=== PATIENT | female | born 1945 | race Caucasian/White ===

== ENCOUNTER → 2017-03-22 | Outpatient (CLI) | payer MEDICARE, OTHER ==
[~2017-03-22] MED LIST: ACTOS45 MG PO; ASPIRIN81 M1 PO; COUMADIN5 MG PO; COZAAR100 MG PO; COZAAR50 MG PO; DIOVAN160 MG PO; GLYBURIDE/METFO1 TA1 PO; GLYBURIDE/METFO1 TA2 PO; GLYBURIDE/METFO1 TA9 PO; ISORDIL TEMBIDS40 M1 PO; LOSARTAN POTAS100 M1 PO; LOVASTATIN20 MG PO; METFORMIN500 MG PO; PLAVIX75 MG PO; SIMVASTATIN20 MG PO; TOPROL XL100 MG PO; ULTRAM50 MG PO; VICODIN 5/500 505 MG PO; VICODIN 500 MG-1 TAB PO
[2017-03-22 09:37] LABS: BASO # 0.1 10*3/uL (0.0-0.1); BASO % 0.9 % (0.0-1.0); EOS # 0.2 10*3/uL (0.0-0.4); EOS % 3.4 % (1.0-4.0); HEMATOCRIT 38.6 % (37.0-47.0); HEMOGLOBIN 12.5 g/dl (12.0-16.0); LYMPH # 2.5 10*3/uL (1.3-4.4); LYMPH % 36.5 % (27.0-41.0); MEAN CELL VOLUME 86.4 fl (81.0-99.0); MEAN CORPUSCULAR HGB CONC 32.4 g/dl (33.0-37.0); MEAN PLATELET VOLUME 10.1 fl (9.6-12.3); MONO # 0.5 10*3/uL (0.1-1.0); NEUT # 3.6 10*3/uL (2.3-7.9); NEUT % 52.1 % (47.0-73.0); PLATELET COUNT AUTOMATED 164 10*3/uL (130-400); RED BLOOD COUNT 4.47 10*6/uL (4.10-5.10); WHITE BLOOD COUNT 6.8 10*3/uL (4.8-10.8)
[2017-03-22 09:39] LABS: ALBUMIN 3.6 gm/dl (3.1-4.5); ALKALINE PHOSPHATASE 135 U/L (45-117); BUN 31 mg/dl (7-24); CHLORIDE 102 mmol/L (98-107); CHOLESTEROL 119 mg/dL (<200); CREATININE 1.04 mg/dL (0.55-1.02); FREE T4 0.79 ng/dl (0.76-1.46); HDL CHOLESTEROL 38 mg/dl (40-60); LDL CHOLESTEROL 28 mg/dL (9-159); POTASSIUM 4.6 mmol/L (3.5-5.1); SGOT/AST 21 IU/L (3-35); SGPT/ALT 28 U/L (12-78); SODIUM 138 mmol/L (136-145); TOTAL PROTEIN 7.7 gm/dL (6.4-8.2); TRIGLYCERIDES 263 mg/dl (<150); VLDL CHOLESTEROL 53 mg/dL (6-40)
[2017-03-22 11:10] LABS: VITAMIN D, 25-HYDROXY 17.5 ng/mL (30-100)
== END | disposition home or self-care (01) ==
LOC: LAB 08:42
PROVIDERS: Internal Medicine
DX: Z12.31 Encounter for screening mammogram for malignant neoplasm of breast (principal); Z13.1 Encounter for screening for diabetes mellitus; Z13.220 Encounter for screening for lipoid disorders; E78.2 Mixed hyperlipidemia; E11.9 Type 2 diabetes mellitus without complications; E55.9 Vitamin D deficiency, unspecified; R53.81 Other malaise

== ENCOUNTER → 2017-03-30 | Outpatient (CLI) | payer MEDICARE, OTHER | END | disposition home or self-care (01) | LOC: RAD 03-24 13:00 | DX: Z13.820 Encounter for screening for osteoporosis (principal); I65.23 Occlusion and stenosis of bilateral carotid arteries; N95.9 Unspecified menopausal and perimenopausal disorder; R06.02 Shortness of breath; R42 Dizziness and giddiness; Z90.710 Acquired absence of both cervix and uterus ==

== ENCOUNTER 2018-11-21 22:47 | Inpatient (IN) | payer MEDICARE, OTHER ==
[~2018-11-21] VITALS: Ht 160 cm; Wt 125.9 kg
[2018-11-21] MEDS ORDERED: SIMVASTATIN20 MG PO (22:54)
[2018-11-21] MEDS ORDERED: ZESTRIL10 MG PO (22:54)
[2018-11-21] MEDS ORDERED: LANTUS SOL100 UNIT/1 SQ (22:55)
[2018-11-21] MEDS ORDERED: HYDR25T PO (22:55)
[2018-11-21] MEDS ORDERED: JANTOVEN5 MG PO (22:55)
[2018-11-21 22:56] VITALS: BP 184/77
[2018-11-21] MEDS ORDERED: FUROSEMIDE40 MG PO (22:56)
[2018-11-21 23:22] LABS: ACT PARTIAL THROMBO TIME 35.6 SECONDS (20.0-32.1); INTERNATIONAL NORM RATIO 2.9 (2.0-3.5)
[2018-11-21 23:23] LABS: ALBUMIN 3.8 gm/dl (3.1-4.5); CREATININE 1.28 mg/dL (0.55-1.02); POTASSIUM 3.9 mmol/L (3.5-5.1); TOTAL PROTEIN 7.9 gm/dL (6.4-8.2)
[2018-11-21 23:25] LABS: BASO # 0.1 10*3/uL (0.0-0.1); BASO % 0.8 % (0.0-1.0); EOS # 0.2 10*3/uL (0.0-0.4); EOS % 2.5 % (1.0-4.0); HEMOGLOBIN 12.5 g/dl (12.0-16.0); LYMPH # 3.4 10*3/uL (1.3-4.4); LYMPH % 44.6 % (27.0-41.0); MEAN CELL VOLUME 86.5 fl (81.0-99.0); MEAN CORPUSCULAR HGB 27.7 pg (27.0-31.0); MEAN CORPUSCULAR HGB CONC 32.1 g/dl (33.0-37.0); MEAN PLATELET VOLUME 10.1 fl (9.6-12.3); MONO # 0.5 10*3/uL (0.1-1.0); MONO % 7.2 % (3.0-9.0); NEUT # 3.3 10*3/uL (2.3-7.9); NEUT % 44.2 % (47.0-73.0); PLATELET COUNT AUTOMATED 199 10*3/uL (130-400); RED BLOOD COUNT 4.51 10*6/uL (4.10-5.10); RED CELL DISTRI WIDTH 13.5 % (0-14.5); WHITE BLOOD COUNT 7.5 10*3/uL (4.8-10.8)
--- NOTE | 2018-11-21 23:27 | NUR ---
CRITICAL TROPONIN 0.[address] SHEPHERD AT THIS TIME
[2018-11-21 23:43] LABS: TROPONIN I 0.404 ng/ml (<0.045)
[2018-11-22 00:09] VITALS: BP 135/52
[2018-11-22 00:50] VITALS: BP 138/64
[2018-11-22 01:00] VITALS: BP 158/60
--- NOTE | 2018-11-22 01:24 | NUR ---
ATTEMPTED TO REACH REGARDING ADMISSION ORDERS. WILL TRY AGAIN
--- NOTE | 2018-11-22 02:23 | NUR ---
SPOKE WITH DR. WASHBURN ANSWERING SERVICE REGARDING CONSULT. WAITING FOR A RETURN CALL
--- NOTE | 2018-11-22 02:23 | NUR ---
SPOKE WITH DR RESENDIZ REGARDING NEW ADMIT AND ELEVATED TROPONINS. SAID TO CONTINUE ALL OF HER HOME MEDS, PUT HER ON A REGULAR DIET AND CONSULT DR. KHOURY FOR THE ELEVATED TROPONINS AND CHEST PAIN.
--- NOTE | 2018-11-22 02:33 | NUR ---
SPOKE WITH DR. LINDSEY REGARDING NEW CONSULT. STATED TO START HER ON THE LOW DOSE CARDIAC PROTOCOL FOR HEPARIN.
[2018-11-22] MEDS ORDERED: IMDUR SA60 M1 PO (02:44)
[2018-11-22] MEDS ORDERED: GLYBURIDE5 MG PO (02:46)
[2018-11-22] MEDS ORDERED: GLUCOPHAGE500 M1 PO (02:46)
--- NOTE | 2018-11-22 04:13 | NUR ---
Patient sleeping. Respirations relaxed and easy. Siderails up . [place] on. CALL LIGHT WITHIN REACH HISSOM,SHAYY
--- NOTE | 2018-11-22 05:26 | NUR ---
SPOKE WITH DR. LINDSEY REGARDING PATIENTS NEW TROPONIN OF 4.41. STATED TO MAKE PATIENT NPO OF NOW.
--- NOTE | 2018-11-22 05:26 | NUR ---
ATTEMPTED TO CONTACT DR. RESENDIZ AT THIS TIME TO NOTIFY OF PATIENTS TROPONIN AT THIS TIME. NO ANSWER WILL RETRY
--- NOTE | 2018-11-22 05:42 | NUR ---
DR. RESENDIZ NOTIFIED OF TROPONIN AT THIS TIME. NOTIFIED HIM THAT PATIENT IS CURRENTLY NPO AND ON HEPARIN PER DR. ADORNO.
--- NOTE | 2018-11-22 06:06 | NUR ---
IV started right hand with #22 angiocath after 1 attempt. The IV site was prepped with Chloraprep. Heparin lock attached. Sterile dressing applied. Patient tolerated precedure well. Procedure performed according to [facility] policy & procedure. NAIMA MURDOCK
--- NOTE | 2018-11-22 06:13 | NUR ---
SPOKE WITH DR. CAM REGARDING PATIENTS STATUS. STATED SHE WAS GOING TO TALK WITH ABOUT POSSIBLY TRANSFERRING HER TO A [facility].
--- NOTE | 2018-11-22 06:32 | NUR ---
DR. CAM IN TO SEE PATIENT.
--- NOTE | 2018-11-22 06:48 | NUR ---
SPOKE WITH DR. CAM. SHE STATED THEY WILL PROBABLY CATH THE PATIENT TOMORROW
--- NOTE | 2018-11-22 06:53 | NUR ---
SPOKE WITH DR. CAM. STATED TO PUT ASPIRIN AND COUMADIN ON HOLD. ALSO, THAT SHE WAS GOING TO PUT IN NITRO PASTE AND VITAMIN K.
--- NOTE | 2018-11-22 07:40 | NUR ---
DR PRAJAPATI IN TO SEE PT. I EXPLAINED THAT PT WANTS TO BE TRANSFERRED TO [facility] TO SEE HER RADIOLOGY TEACHER. PER DR PRAJAPATI PT WILL GO VIA GROUND TO [facility] UNDER THE CARE OF DR MARKS. WAITING ON ROOM. HEPARIN INFUSION DISCONTINUED, NITRO PASTE AND PO VITAMIN K ADMINISTERED. PT AWARE THAT TRANSFER IS IN PROGRESS.
[2018-11-22 08:00] VITALS: BP 139/50
[2018-11-22 09:23] LABS: INTERNATIONAL NORM RATIO 3.1 (2.0-3.5)
[2018-11-22 12:00] VITALS: BP 158/52
--- NOTE | 2018-11-22 13:56 | NUR ---
PT BEING TRANSFERRED TO [facility]. PT LEFT FLOOR VIA STRETCHER IN THE CARE OF [facility]. PACKET SENT WITH PATIENT
--- NOTE | 2018-11-22 13:56 | NUR ---
REPORT CALLED TO NURSE ANDERSON AT [facility].
--- NOTE | 2018-11-22 14:03 | NUR ---
PER DR CASON I CALLED [facility] AND GAVE THEM DR SANTIAGO PHONE NUMBER AND EXPLAINED THAT HE SAID HE WILL SEE PT WHILE SHE IS THERE
[2019-01-18] MEDS ORDERED: LIPITOR80 MG PO (08:24)
[2019-01-18] MEDS ORDERED: TRAD5TAB1 PO (08:24)
[2019-01-18] MEDS ORDERED: COUMADIN5 M2 PO (08:26)
[2019-01-18] MEDS ORDERED: DOXYCYCLINE100 M3 PO (08:28)
[2019-01-18] MEDS ORDERED: COUMADIN2.5 M1 PO (08:28)
== END 2018-11-22 13:56 | disposition short-term general hospital (02) | DRG 281 ==
LOC: ED 22:47 → 4E 11-22 00:21 → EDHOLD 11-22 00:21 → 4E 11-22 00:36
PROVIDERS: Emergency Medicine; Internal Medicine; ADMIT Internal Medicine
DX: I21.4 Non-ST elevation (NSTEMI) myocardial infarction (principal); Z68.42 Body mass index [BMI] 45.0-49.9, adult; Z96.653 Presence of artificial knee joint, bilateral; E66.01 Morbid (severe) obesity due to excess calories; E11.22 Type 2 diabetes mellitus with diabetic chronic kidney disease; N18.9 Chronic kidney disease, unspecified; I25.709 Atherosclerosis of coronary artery bypass graft(s), unspecified, with unspecified angina pectoris; I12.9 Hypertensive chronic kidney disease with stage 1 through stage 4 chronic kidney disease, or unspecified chronic kidney disease; Z79.4 Long term (current) use of insulin; Z79.84 Long term (current) use of oral hypoglycemic drugs; Z79.82 Long term (current) use of aspirin; Z79.01 Long term (current) use of anticoagulants; Z90.710 Acquired absence of both cervix and uterus; Z82.49 Family history of ischemic heart disease and other diseases of the circulatory system; Z83.3 Family history of diabetes mellitus; Z86.718 Personal history of other venous thrombosis and embolism; Z86.711 Personal history of pulmonary embolism; Z90.49 Acquired absence of other specified parts of digestive tract

== ENCOUNTER → 2019-01-21 | Day surgery (SDC) | payer MEDICARE, OTHER ==
[~2019-01-21] VITALS: Ht 160 cm; Wt 123.4 kg
[~2019-01-21] MED LIST changes: +COUMADIN2.5 M1 PO; +COUMADIN5 M2 PO; +DOXYCYCLINE100 M3 PO; +FUROSEMIDE40 MG PO; +GLUCOPHAGE500 M1 PO; +GLYBURIDE5 MG PO; +HYDR25T PO; +IMDUR SA60 M1 PO; +JANTOVEN5 MG PO; +LANTUS SOL100 UNIT/1 SQ; +LIPITOR80 MG PO; +TRAD5TAB1 PO; +ZESTRIL10 MG PO
[2019-01-21 07:16] LABS: INTERNATIONAL NORM RATIO 4.1 (2.0-3.5)
[2019-01-21 07:42] VITALS: BP 129/64
[2019-01-21 08:49] VITALS: BP 129/68
[2019-01-21 09:04] VITALS: BP 128/68
[2019-01-21 09:19] VITALS: BP 130/71
== END | disposition home or self-care (01) ==
LOC: SDC 01-18 09:30
PROVIDERS: Anesthesiology
DX: L98.492 Non-pressure chronic ulcer of skin of other sites with fat layer exposed (principal); L97.212 Non-pressure chronic ulcer of right calf with fat layer exposed; E11.59 Type 2 diabetes mellitus with other circulatory complications; I25.10 Atherosclerotic heart disease of native coronary artery without angina pectoris; I10 Essential (primary) hypertension; E78.5 Hyperlipidemia, unspecified; I25.2 Old myocardial infarction; Z95.5 Presence of coronary angioplasty implant and graft; Z98.890 Other specified postprocedural states; Z87.74 Personal history of (corrected) congenital malformations of heart and circulatory system; Z79.899 Other long term (current) drug therapy; Z82.49 Family history of ischemic heart disease and other diseases of the circulatory system; Z83.3 Family history of diabetes mellitus; Z79.4 Long term (current) use of insulin

== ENCOUNTER → 2019-02-04 | Day surgery (SDC) | payer MEDICARE, OTHER ==
[~2019-02-04] VITALS: Ht 160 cm; Wt 123.4 kg
[2019-02-04 06:48] VITALS: BP 123/62
[2019-02-04 08:35] VITALS: BP 125/61
[2019-02-04 08:50] VITALS: BP 109/51
[2019-02-04 09:05] VITALS: BP 123/41
== END | disposition home or self-care (01) ==
LOC: SDC 02-01 11:00
DX: L97.212 Non-pressure chronic ulcer of right calf with fat layer exposed (principal); L98.492 Non-pressure chronic ulcer of skin of other sites with fat layer exposed; E11.59 Type 2 diabetes mellitus with other circulatory complications; I25.10 Atherosclerotic heart disease of native coronary artery without angina pectoris; I10 Essential (primary) hypertension; E78.5 Hyperlipidemia, unspecified; I25.2 Old myocardial infarction; E66.01 Morbid (severe) obesity due to excess calories; Z68.42 Body mass index [BMI] 45.0-49.9, adult; Z98.890 Other specified postprocedural states; Z87.74 Personal history of (corrected) congenital malformations of heart and circulatory system; Z95.5 Presence of coronary angioplasty implant and graft; Z82.49 Family history of ischemic heart disease and other diseases of the circulatory system; Z83.3 Family history of diabetes mellitus

== ENCOUNTER 2019-02-26 10:26 | Inpatient (IN) | payer MEDICARE, OTHER ==
[~2019-02-26] VITALS: Ht 160 cm; Wt 113.9 kg
[2019-02-26 10:36] VITALS: BP 124/34
[2019-02-26] MEDS ORDERED: GLUCOSAMINE &1 EACH PO (10:49)
[2019-02-26] MEDS ORDERED: MIRTAZAPINE15 M2 PO (10:49)
[2019-02-26 11:29] LABS: BASO # 0.1 10*3/uL (0.0-0.1); EOS # 0.1 10*3/uL (0.0-0.4); EOS % 1.7 % (1.0-4.0); HEMATOCRIT 33.8 % (37.0-47.0); HEMOGLOBIN 9.9 g/dl (12.0-16.0); LYMPH # 1.9 10*3/uL (1.3-4.4); LYMPH % 24.8 % (27.0-41.0); MEAN CELL VOLUME 78.4 fl (81.0-99.0); MEAN CORPUSCULAR HGB CONC 29.3 g/dl (33.0-37.0); MEAN PLATELET VOLUME 9.9 fl (9.6-12.3); MONO # 0.4 10*3/uL (0.1-1.0); MONO % 5.6 % (3.0-9.0); NEUT # 5.1 10*3/uL (2.3-7.9); NEUT % 66.8 % (47.0-73.0); PLATELET COUNT AUTOMATED 287 10*3/uL (130-400); RED BLOOD COUNT 4.31 10*6/uL (4.10-5.10); RED CELL DISTRI WIDTH 17.1 % (0-14.5); WHITE BLOOD COUNT 7.7 10*3/uL (4.8-10.8)
[2019-02-26 11:44] LABS: CREATININE 1.45 mg/dL (0.55-1.02); POTASSIUM 4.2 mmol/L (3.5-5.1); TOTAL PROTEIN 7.3 gm/dL (6.4-8.2)
[2019-02-26 13:10] VITALS: BP 110/54
--- NOTE | 2019-02-26 13:10 | NUR ---
Time: 1309 A 73 year old [id number] admitted to 5E under services of PRASANNA SAWYER MD. Pt. arrived via stretcher from ER. Chief complaint: SENT BY [employer] FOR RIGHT LOWER LEG WOUND THAT HAS INCREASED IN SIZE, REDNESS, DRAINAGE, AND ODOR WITH NO IMPROVEMENT WITH ANTIBIOTICS AT HOME. JOAQUÍN ZUNIGA
[2019-02-26 13:18] VITALS: BP 110/54
--- NOTE | 2019-02-26 14:52 | NUR ---
PODIATRY RESIDENT NOTIFIED OF THE CONSULT.
--- NOTE | 2019-02-26 16:55 | NUR ---
DR. DIAZ'S ANSWERING SERVICE NOTIFIED OF CONSULT RE: RLE WOUND
[2019-02-26 20:00] VITALS: BP 99/51
--- NOTE | 2019-02-26 20:23 | NUR ---
CALLED DR. PRAJAPATI AND NOTIFIED HER PT. WANTED TYLENOL FOR PAIN. ORDER RECEIVED.
--- NOTE | 2019-02-26 21:08 | NUR ---
TYLENOL GIVEN PER ORDER FOR LOWER LEG PAIN RATED "6" PER PT. SEE APR.
--- NOTE | 2019-02-26 22:00 | NUR ---
TYLENOL EFFECTIVE FOR PAIN PER PT.
[2019-02-27] VITALS (16 sets, daily range): BP systolic 101–156; BP diastolic 39–84
--- NOTE | 2019-02-27 01:06 | NUR ---
24 HR chart check completed.
[2019-02-27 06:48] LABS: BASO % 0.6 % (0.0-1.0); EOS # 0.3 10*3/uL (0.0-0.4); EOS % 4.1 % (1.0-4.0); HEMATOCRIT 30.2 % (37.0-47.0); HEMOGLOBIN 8.9 g/dl (12.0-16.0); LYMPH # 2.2 10*3/uL (1.3-4.4); LYMPH % 32.6 % (27.0-41.0); MEAN CORPUSCULAR HGB CONC 29.5 g/dl (33.0-37.0); MEAN PLATELET VOLUME 10.1 fl (9.6-12.3); MONO # 0.4 10*3/uL (0.1-1.0); MONO % 6.4 % (3.0-9.0); NEUT # 3.8 10*3/uL (2.3-7.9); PLATELET COUNT AUTOMATED 251 10*3/uL (130-400); RED BLOOD COUNT 3.87 10*6/uL (4.10-5.10); RED CELL DISTRI WIDTH 17.2 % (0-14.5); WHITE BLOOD COUNT 6.8 10*3/uL (4.8-10.8)
[2019-02-27 07:06] LABS: BUN 44 mg/dl (7-24); CHLORIDE 102 mmol/L (98-107); POTASSIUM 3.9 mmol/L (3.5-5.1); SODIUM 135 mmol/L (136-145)
[2019-02-27 07:08] LABS: CREATININE 1.33 mg/dL (0.55-1.02)
[2019-02-27 07:18] LABS: INTERNATIONAL NORM RATIO 5.4 (2.0-3.5)
--- NOTE | 2019-02-27 07:36 | NUR ---
MUSTAPHA DAVALOS [id number] Please refer to the physician's history and physical for past medical history, comorbid conditions, and allergies. Diagnosis: OPEN WOUND OF RT LOWER LEG,FAILURE OF OUT PT TREAT Curtis Score: 20,LOW OR NO RISK WOUND DESCRIPTIONS: Wound Number: 1 Location of the wound: right anterior aspect of lower extremity Type of wound: surgical Thickness: Full Size: 3.7cm x 5.5cm x 1.7cm Tunnelin.5cm at 7 o'clock, 1.5cm at 9 o'clock Underminin.5cm 10-12 o'clock Sinus Tract: none Presence of Exudate: Purulent Amount: Moderate Color: Black, yellow, red, brown Odor: Foul Periwound Skin Appearance: Erythema Wound edges: approximated Pain (associated with wound): tender to touch How does patient state this happened? pt stated this started back in november when she had open heart surgery and has never healed patient stated she has had a couple surgeries before and is now following up with podiatry was following in the wound care center with Dr. Marion Surface the patient is resting on: Isoflex SKIN PREVENTION RECOMMENDATION: 1. Pressure redistribution support surface as appropriate 2. Elevate heels 3. Remove boots/TEDS every shift and reapply 4. Head of bed 30 degrees as tolerated 5. Assess nutrition and hydration 6. Manage moisture 7. Avoid the use of containment devices while in bed 8. Use absorptive products on surfaces limit layers of linens on bed 9. Turn and reposition every 1-2 hours in bed and every 1 hour in chair as tolerated 10. Weight shifts every 15 minutes while up in chair 11. Offloading with pillows or device to keep heels elevated off bed 12. Monitor skin at least every shift 13. Inspect under medical devices twice a day WOUND TREATMENT RECOMMENDATIONS: Full thickness guidelines: Cleanse right anterior aspect of lower extremity with nss and apply sureprep around the wound therahoney to wound bed and lightly pack with maxorb II and cover with optifoam gentle daily and prn for soiling. Await post op orders from surgery today 02/27/19. Podiatry and ID is already on consult. Venous and arterial studies already ordered. tibia/fibula x-ray already ordered.
--- NOTE | 2019-02-27 08:00 | NUR ---
VS STABLE- A&O X3, MATI, COLOR IS GOOD, SKIN WARM DRY AND INTACT, WOUND ON RIGHT FITZGERALD PURULANT DRAINAGE AND TUNNELING NOTED, WOUND CARE NURSE IN TO CHANGE THE DRESSING, CAPILLARY REFILL <3 SECONDS, SKIN TURGOR NON-TENTING, HEART SOUNDS NORMAL PULSE 82, LUNGS CLEAR THROUGHOUT, PO2 97% ON ROOM AIR, ABDOMEN SOFT NON-TENDER NON-DISTENDED, BOWEL SOUNDS X4, IV IN RA INTACT NO SIGNS OR SYMPTOMS OF INFECTION, NO COMPLAINTS OF PAIN, PATIENT PLEASANT AND COOPERATIVE, NO FURTHER COMPLAINTS, WILL CONTINUE TO ASSESS. PREMA LUZ [facility]
--- NOTE | 2019-02-27 09:00 | NUR ---
Information Manager in to talk to patient. Patient states lives at home with her daughter. There are 4 steps in the home. Physician: Dr. Elsy Collins Pharmacy: [facility] Home health services: currently has PENDING SALE TO [facility] RN and would like to resume those services upon discharge Patient's level of ADLs: MINIMAL ASSIST Patient has working utilities: yes DME: cane, c-pap Follow-up physician's appointment after d/c: she prefers to make her own follow up appt after discharge Does patient want to access PORTAL?: no Discharge plan discussed with patient. She lives at home with her daughter. She is independent in her ADLs and ambulates with a cane. Discussed home health care services and she currently has PENDING SALE TO [facility] nursing and would like to resume those services upon discharge. Her daughter will provide transportation on discharge. JACQUELINE FRANCOIS
--- NOTE | 2019-02-27 10:45 | NUR ---
Wound care recommendations given to nurse caring for patient.
--- NOTE | 2019-02-27 10:46 | NUR ---
INR THIS AM 5.4, 1 UNIT FFP TRANSFUSED ORDERED, ORDERING STAT INR, PATIENT FOR SURGERY TO RIGHT LEG WOUND AFTER THIS IS RESULTED.
[2019-02-27 11:30] LABS: INTERNATIONAL NORM RATIO 3.5 (2.0-3.5)
--- NOTE | 2019-02-27 11:37 | NUR ---
SURGERY STAFF NOTIFIED THAT INR 3.5 AFTER TRANSFUSION OF FFP
--- NOTE | 2019-02-27 11:45 | NUR ---
PATIENT TO OR BY BED FOR I & D PROCEDURE.
--- NOTE | 2019-02-27 12:10 | NUR ---
PATIENT TO SURGERY VIA BED. CONDITION STABLE. PREMA LUZ [facility]
--- NOTE | 2019-02-27 12:44 | NUR ---
DR. BOURGEOIS IN, BUT PATIENT UNABLE TO BE SEEN BY HIM AT THIS TIME D/T SHE IS IN OR PROCEDURE.
--- NOTE | 2019-02-27 16:30 | NUR ---
Wound vac removed by Dr Barker due to occulsion from large clot. Surgicel applied to wound along with 4x4 pressure dressing, kerlex, and rebeca wrap. Pt tolerated well. Courtney Levine Rn
--- NOTE | 2019-02-27 16:44 | NUR ---
PATIENT RETURNED FROM SURGERY. PER SURGERY STAFF, WOUND VAC TUBING CLOTTED, WAS REMOVED BY DR. DE LA TORRE, HE WILL REAPPLY THE WOUND VAC TOMORROW AM. RESUMING MEDS AND DIET, SEE SHIFT ASSESSMENTS FOR DETAILS.
--- NOTE | 2019-02-27 17:15 | NUR ---
MEDICATED WITH PRN PO TYLENOL FOR RIGHT LEG POST OP PAIN.
--- NOTE | 2019-02-27 17:30 | NUR ---
BRIGHT RED BLOODY DRAINAGE NOTED TO RIGHT LEG WOUND COMING THROUGH THE PRESSURE DRESSING THAT WAS PLACED BY DR. DE LA TORRE EARLIER IN OR. REINFORCED THE AREA WITH 4x4'S AND REAPPLIED ABDOULAYE WRAP OVER THE AREA. PHONED DR. DE LA TORRE, HE ADVISED TO REINFORCE THE DRESSING DESCRIBED ABOVE AND CALL IF THIS REINFORCED DRESSING GETS SATURATED.
[2019-02-28] VITALS (7 sets, daily range): BP systolic 88–137; BP diastolic 39–76
--- NOTE | 2019-02-28 02:02 | NUR ---
Patient resting quietly with no c/o discomfort. Respirations easy and regular. No overt distress. AYAAN SAGASTUME
--- NOTE | 2019-02-28 07:10 | NUR ---
ARRIVED ON SHIFT, INTRODUCED TO PATIENT, NO NEEDS VOICED AT THIS TIME, WHITE BOARD UPDATED.
--- NOTE | 2019-02-28 08:45 | NUR ---
Spoke with Maya nurse caring for patient and stated patient will need post op order wound care order for wound vac.
--- NOTE | 2019-02-28 08:50 | NUR ---
GRIEF COUNSELOR faxed new referral to [facility]. Will need PT Eval. -Ayla Godinez,GRIEF COUNSELOR
--- NOTE | 2019-02-28 08:51 | NUR ---
Spoke with regarding no post op orders for patient he stated he will notify podiatry.
--- NOTE | 2019-02-28 08:55 | NUR ---
Shift chart check completed.
--- NOTE | 2019-02-28 09:10 | NUR ---
Lay Out Worker in to see patient. Discussed short term SNF and she is agreeable. When provided with a list of facilities she chose [facility]. workforce planner notified.
[2019-02-28 09:44] LABS: CREATININE 1.13 mg/dL (0.55-1.02)
--- NOTE | 2019-02-28 15:35 | NUR ---
PT REQUESTING TYLENOL FOR RIGHT LEG PAIN RATED A 10/10. MEDICATED WITH PRN TYLENOL ORDERED. WILL CHECK EFFECTIVENESS.
--- NOTE | 2019-02-28 16:10 | NUR ---
PHYSICAL THERAPY [place] completed moderate complexity [id number] recomend SNF at discharge. PT to work on transfers,amb,balance/safety. Shameka Pelletier PT
--- NOTE | 2019-02-28 20:06 | NUR ---
PATIENT IN PAIN AND REQUESTING TYLENOL. NEXT DOSE AVAILABLE ISN'T UNTIL 2129. PATIENT'S BLOOD PRESSURE 98/[address] RESENDIZ AND HE STATED TO HOLD THE NORCO DUE TO BLOOD PRESSURE. CHANGE THE TYLENOL ORDER TO 1000MG Q8H AND TO ORDER A LITER OF FLUID AT 60 ML/HR ONE TIME. WILL PUT IN ORDERS.
--- NOTE | 2019-02-28 20:35 | NUR ---
TYLENOL GIVEN PER PATIENT REQUEST FOR COMPLAINTS OF PAIN RATED 8/10 IN HER RIGHT LEG. WILL ASSESS EFFECTIVENESS.
--- NOTE | 2019-02-28 21:03 | NUR ---
PATIENT REFUSING IV FLUIDS AT THIS TIME. SHE STATED SHE WANTED TO WAIT "A LITTLE BIT LONGER" AND THEN HAVE HER BLOOD PRESSURE RECHECKED. IF BLOOD PRESSURE WAS STILL LOW SHE SAID SHE WOULD AGREE TO THE ORDERED IV FLUIDS AT 60 ML/HR.
--- NOTE | 2019-02-28 21:09 | NUR ---
PATIENT STATED PRESSURE DRESSING WAS "TOO TIGHT" AND "CUTTING OFF CIRCULATION" PATIENT STATED SHE WAS GOING TO TAKE THE TOP PART OF THE DRESSING OFF IF IT CONTINUED TO CAUSE HER DISCOMFORT/PAIN. PODIATRY PLACED THE DRESSING TONIGHT AROUND 1999. PATIENT STATED PODIATRY KNEW IT WAS UNCOMFORTABLE FOR HER SO THEY RE-WRAPPED IT A LITTLE BIT LOOSER. PATIENT THEN PUT CALL LIGHT ON AND STATED SHE WAS TAKING THE DRESSING OFF. WHEN I ENTERED THE ROOM, THE PATIENT HAD ONLY TAKEN OFF ONE KERLEX WRAP AT THE TOP OF THE DRESSING TO RELIEVE SOME OF THE PRESSURE. PATIENT STATED THIS FELT BETTER AND THAT SHE WAS GOING TO LEAVE THE DRESSING INTACT. NO FURTHER COMPLAINTS AT THIS TIME. WILL CONTINUE TO ASSESS AND MONITOR.
--- NOTE | 2019-02-28 21:49 | NUR ---
SPOKE WITH CHRISTIAN SCIENCE READER PODIATRY RESIDENT REGARDING PATIENT'S DRESSING. RESIDENT STATED TO DOCUMENT IF PATIENT TAKES OFF TOP OF DRESSING AND TO MAKE SURE TO LEAVE THE DRESSING BELOW THE KNEE INTACT.
[2019-03-01] VITALS: BP 114/47
[2019-03-01 00:06] VITALS: BP 122/44
--- NOTE | 2019-03-01 00:08 | NUR ---
PATIENT TOOK OFF THE REST OF THE TOP OF THE DRESSING THAT WAS APPLIED AT 199902-28-2019. PATIENT STATED HER LEG FEELS BETTER WITH THEM OFF. WILL CONTINUE TO MONITOR.
--- NOTE | 2019-03-01 02:45 | NUR ---
Patient resting quietly with no c/o discomfort. Respirations easy and regular. No overt distress. AYAAN SAGASTUME
--- NOTE | 2019-03-01 06:15 | NUR ---
PATIENT RESTING IN BED. NO SIGNS OR SYMPTOMS OF DISCOMFORT. PATIENT STATED SHE IS NOT CURRENTLY IN ANY PAIN AND DOES NOT WANT ANY PAIN MEDICATION. EDUCATED THE PATIENT ON STAYING AHEAD OF PAIN CONTROL. PATIENT UNDERSTANDS TEACHING. CALL LIGHT WITHIN REACH.
--- NOTE | 2019-03-01 07:20 | NUR ---
ARRIVED ON SHIFT, INTRODUCED TO PATIENT, NO NEEDS VOICED AT THIS TIME, WHITE BOARD UPDATED.
[2019-03-01] MEDS ORDERED: HYDROCODONE-AC1 EAC1 PO (07:32)
[2019-03-01] MEDS ORDERED: CEFEPIME HYDROCH2 GM IJ (07:33)
--- NOTE | 2019-03-01 07:37 | NUR ---
Acceptance is needed for [facility]. GRAIN OILSEED OR PASTURE FARM MANAGER faxed updates with PT Eval to [facility]. -JUAN PABLO Pettit
--- NOTE | 2019-03-01 07:46 | NUR ---
Received call from Dr. Collins to hold discharge due to watching her kidney function. branch library clerk notified.
--- NOTE | 2019-03-01 07:48 | NUR ---
DR PRAJAPATI IN TO SEE THE PATIENT. DR PRAJAPATI STATED THAT SHE NEEDED TO SEE THE PATIENT'S WOUND BEFORE SHE WAS ABLE TO DISCHARGE HER. I NOTIFIED HER THAT PODIATRY WAS DRESSING AND TAKING CARE OF HER WOUND. DR PRAJAPATI ASKED ME TO UNDRESS THE KERLEX AND ABDOULAYE WRAPS SO SHE COULD SEE THE PATIENT'S WOUND. I UNDRESSED THE WOUND PER DR MENDEZ, BUT LEFT WOUND VAC DRESSING IN PLACE. I THEN RE-DRESSED THE WOUND AND NOTIFIED PODIATRY THAT I HAD TAKEN OFF THE KERLIX AND ABDOULAYE WRAPS AND THEN REAPPLIED THEM PER DR PRAJAPATI'S ORDERS. PODIATRY STATED THAT THAT WAS OKAY AND TO MAKE SURE THE DRESSING WENT ABOVE THE PATIENT'S KNEE. I NOTIFIED PODIATRY THAT THE PATIENT HAD TAKEN OFF THE DRESSING ABOVE HER KNEE LAST NIGHT BECAUSE IT WAS TOO TIGHT AND CAUSING DISCOMFORT. PODIATRY STATED THAT I COULD MAKE THE DRESSING ABOVE THE KNEE A LITTLE LOOSER TO MAKE IT MORE COMFORTABLE FOR THE PATIENT. NO FURHER ORDERS RECIEVED. PATIENT'S DRESSING INTACT. NURSE COMING ON INFORMED OF EVERYTHING THAT HAPPENED.
[2019-03-01 08:00] VITALS: BP 111/95
--- NOTE | 2019-03-01 08:59 | NUR ---
Shift chart check completed.
[2019-03-01 09:03] LABS: BASO # 0.1 10*3/uL (0.0-0.1); BASO % 1.2 % (0.0-1.0); EOS # 0.3 10*3/uL (0.0-0.4); EOS % 5.9 % (1.0-4.0); HEMATOCRIT 29.7 % (37.0-47.0); HEMOGLOBIN 8.6 g/dl (12.0-16.0); LYMPH # 1.8 10*3/uL (1.3-4.4); LYMPH % 35.7 % (27.0-41.0); MEAN CELL VOLUME 79.2 fl (81.0-99.0); MEAN CORPUSCULAR HGB 22.9 pg (27.0-31.0); MEAN PLATELET VOLUME 9.7 fl (9.6-12.3); MONO # 0.4 10*3/uL (0.1-1.0); MONO % 8.6 % (3.0-9.0); NEUT # 2.5 10*3/uL (2.3-7.9); NEUT % 48.4 % (47.0-73.0); PLATELET COUNT AUTOMATED 237 10*3/uL (130-400); RED BLOOD COUNT 3.75 10*6/uL (4.10-5.10); RED CELL DISTRI WIDTH 17.5 % (0-14.5); WHITE BLOOD COUNT 5.1 10*3/uL (4.8-10.8)
[2019-03-01 09:11] LABS: BUN 27 mg/dl (7-24); CHLORIDE 104 mmol/L (98-107); CREATININE 1.06 mg/dL (0.55-1.02); POTASSIUM 3.7 mmol/L (3.5-5.1); SODIUM 140 mmol/L (136-145)
[2019-03-01 09:14] LABS: INTERNATIONAL NORM RATIO 2.6 (2.0-3.5)
--- NOTE | 2019-03-01 10:49 | NUR ---
Spoke to Dr. Collins regarding lab results and cefepime being too expensive for [facility]. New orders received for Rocephin 1 gm IV daily at [facility]. Continue cefepime while in hospital. Restart Coumadin 2.5 mg po Monday, Monday, Monday, and Coumadin 5 mg po Monday, Monday, and Monday. Nurse and social media strategist notified.
[2019-03-01 12:00] VITALS: BP 120/52
[2019-03-01 12:10] LABS: ACID FAST SPEC PROCESSING Tissue Grinding (.)
--- NOTE | 2019-03-01 13:42 | NUR ---
Per Dr. Collins patient is unable to be discharged to [facility] until Monday when [facility] can get a wound vac. clinical social worker notified.
--- NOTE | 2019-03-01 13:42 | NUR ---
JUAN PABLO received notice that a wound vac will not be available at [facility] until Monday. -JUAN PABLO Pettit
--- NOTE | 2019-03-01 14:50 | NUR ---
PHYSICAL THERAPY TREATMENT TIME: 2:35 PM - 2:52 PM 17 MINUTES TOTAL. Patient presented to therapy in standing as patient was coming out of the restroom. Patient was wound vac attached to her R foot. Patient has infusing IV LINE at this time. Patient gives informed consent for treatent. Patient was identified by name and on wristband. Patient performed ambulation with standard cane held in R hand for 40' x 2 with IV pole in tow by this BENEFITS MANAGER as well as this BENEFITS MANAGER holding wound vac machine in other hand as patient ambulated with CLose Supervision to CGA X 1. Patient has R LE pain with ambulation causing patient to lose balance at times. Patient transfers into and out of chair with MIN A X 1 and < > COMMODE with MIN A X 1. Patient transfers supine < > sit EOB with SBA. Patient was left sitting on EOB with call light within reach and tray table near patient. Patient's wound vac left on floor on bibiana by entrance of bathroom and IV plugged into wall outlet. Patient was 1:1 with this BENEFITS MANAGER for 17 minutes total. SHANNON BREAUX BENEFITS MANAGER
--- NOTE | 2019-03-01 14:51 | NUR ---
DIRECTOR EMERGENCY spoke with [facility]. Patient is able to go to [facility] but they are unable to get wound vac until Monday03/04/2019. -JUAN PABLO Pettit
--- NOTE | 2019-03-01 14:56 | NUR ---
OWNER COMPLETED HENS. -JUAN PABLO GUZMAN
--- NOTE | 2019-03-01 15:38 | NUR ---
PHYSICAL THERAPY CO-SIGN I approve of the Physical Therapy notes written above. Shameka Pelletier PT
[2019-03-01 16:00] VITALS: BP 123/54
[2019-03-01 20:00] VITALS: BP 132/48
--- NOTE | 2019-03-01 20:00 | NUR ---
PATIENT LYING IN BED, DENIES ANY PAIN AT THIS TIME. LEG DRESSING DRY AND INTACTED. WOUND VAC ATTACHED. PATIENT LEFT WITH CALL LIGHT IN REACH.
[2019-03-02] VITALS: BP 124/48
[2019-03-02 08:00] VITALS: BP 128/60
[2019-03-02 12:00] VITALS: BP 149/53
--- NOTE | 2019-03-02 14:37 | NUR ---
PATIENT IV OUTDATED DOES NOT WANT A NEW ONE.
--- NOTE | 2019-03-02 14:40 | NUR ---
PHYSICAL THERAPY Patient supine in bed at time of arrival-- patient provided informed consent for therapy session; patient identified by name/. Performance of bed mobility- patient transitions supine->sit requiring supervision. Transfer training- patient completed STS transfer EOB->straight cane requiring SBA. Gait training- patient ambulated with use of straight cane and CGA-minAx1 plus assistace for manipulation of wound vac--over level surfaces incorporating 180 degree directional changes ~30'x2. Patient tends to furniture walk requiring cues for safety. Seated rest breaks provided, due to fatigue. WBFatou MERLOS. Patient sitting EOB at session end with call light within reach. Patient voiced no c/o this date. Leatha Amin, SUPERVISOR RESEARCH SHOP
[2019-03-02 16:00] VITALS: BP 117/52
--- NOTE | 2019-03-02 19:15 | NUR ---
ARRIVED ON SHIFT, INTRODUCED TO PATIENT, NO NEEDS VOICED AT THIS TIME, WHITE BOARD UPDATED.
[2019-03-02 20:00] VITALS: BP 128/49
[2019-03-03] VITALS: BP 157/44
[2019-03-03 08:00] VITALS: BP 129/77
[2019-03-03 12:00] VITALS: BP 154/59
[2019-03-03 16:00] VITALS: BP 133/56
--- NOTE | 2019-03-03 19:15 | NUR ---
ARRIVED ON SHIFT, INTRODUCED TO PATIENT, WHITE BOARD UPDATED, NO NEEDS VOICED AT THI TIME.
[2019-03-03 20:00] VITALS: BP 143/62
--- NOTE | 2019-03-03 22:29 | NUR ---
24 HR chart check completed.
[2019-03-04] VITALS: BP 134/72
--- NOTE | 2019-03-04 01:35 | NUR ---
Patient resting quietly with eyes closed, respirations easy and non-labored, bed in low position, wheel locks on siderails up x 2, call light within reach. CHARLY GUTIERREZ
--- NOTE | 2019-03-04 04:58 | NUR ---
Upon discharge recommend patient to follow up for wound care in outpatient setting continue current wound care orders at discharging facility.
[2019-03-04 06:40] LABS: INTERNATIONAL NORM RATIO 1.9 (2.0-3.5)
[2019-03-04 08:00] VITALS: BP 145/59
--- NOTE | 2019-03-04 08:00 | NUR ---
Discussed discharge planning with Dr. Collins. Patient can be discharged today as long as [facility] has the wound vac. mission planner following.
[2019-03-04] MEDS ORDERED: LEVOFLOXACIN500 MG PO (08:47)
[2019-03-04] MEDS ORDERED: DOXYCYCLINE MO100 M1 PO (08:47)
--- NOTE | 2019-03-04 09:25 | NUR ---
[facility] vac should be there this afternoon. Waiting on wound vac
[2019-03-04 12:00] VITALS: BP 146/58
--- NOTE | 2019-03-04 13:16 | NUR ---
Notified Dr Messer that Luz Ramsey spoke with pt.Per Eugenio's request pt to be d/c'd with duoneb and nebulizer prescriptions. pt is currently upset and demanind to be d/c "like that said" .Dr Messer aware.Pt states she "will get up and walk out when my daughter in law gets here".Pt is currently on phone with family at this time.Encouragement provided and requested patience. Pt cooperative at this time.Call light in reach.
--- NOTE | 2019-03-04 15:31 | NUR ---
DISCHARGE PHOTOS OBTAINED FOR RIGHT FITZGERALD. PATIENT STATES WOUND TO THIGH IS HEALED AND DID NOT WANT PHOTOGRAPHS TAKEN OF THIS AREA.
--- NOTE | 2019-03-04 15:45 | NUR ---
Discharge instructions reviewed with patient/family. Patient receptive and verbalizes understanding. Follow-up care arranged. Written instructions given to patient/family. MONICA WREN
--- NOTE | 2019-03-05 07:32 | NUR ---
PHYSICAL THERAPY CO-SIGN I approve of the Physical Therapy notes written above. Shameka Pelletier PT
[2019-03-19] MEDS ORDERED: KAPSPARGO SPRIN25 MG PO (10:13)
[2019-03-20] MEDS ORDERED: DOXYCYCLINE100 M3 PO (15:44)
[2019-03-20] MEDS ORDERED: TRAMADOL HCL50 MG PO (15:45)
[2019-04-11 12:04] LABS: ACID FAST CULTURE Negative (.)
== END 2019-03-04 15:45 | disposition other institution (70) | DRG 576 ==
LOC: ED 10:26 → EDHOLD 11:58 → 5E 11:58
PROVIDERS: Physician Assistant; Podiatrist; ADMIT Internal Medicine
DX: S81.801A Unspecified open wound, right lower leg, initial encounter (principal); N17.0 Acute kidney failure with tubular necrosis; L03.115 Cellulitis of right lower limb; E87.2 Acidosis; I48.21 Permanent atrial fibrillation; F33.0 Major depressive disorder, recurrent, mild; L97.219 Non-pressure chronic ulcer of right calf with unspecified severity; L02.415 Cutaneous abscess of right lower limb; Z68.41 Body mass index [BMI] 40.0-44.9, adult; R62.7 Adult failure to thrive; B96.89 Other specified bacterial agents as the cause of diseases classified elsewhere; I12.9 Hypertensive chronic kidney disease with stage 1 through stage 4 chronic kidney disease, or unspecified chronic kidney disease; N18.9 Chronic kidney disease, unspecified; E11.22 Type 2 diabetes mellitus with diabetic chronic kidney disease; I25.10 Atherosclerotic heart disease of native coronary artery without angina pectoris; X58.XXXA Exposure to other specified factors, initial encounter; S91.001A Unspecified open wound, right ankle, initial encounter; E78.2 Mixed hyperlipidemia; I87.2 Venous insufficiency (chronic) (peripheral); Z96.653 Presence of artificial knee joint, bilateral; Z79.01 Long term (current) use of anticoagulants; Y93.89 Activity, other specified; Y92.89 Other specified places as the place of occurrence of the external cause; Y99.8 Other external cause status; Z95.1 Presence of aortocoronary bypass graft; Z86.718 Personal history of other venous thrombosis and embolism; Z86.711 Personal history of pulmonary embolism; Z79.82 Long term (current) use of aspirin; Z79.899 Other long term (current) drug therapy; Z90.49 Acquired absence of other specified parts of digestive tract; Z90.710 Acquired absence of both cervix and uterus; Z84.1 Family history of disorders of kidney and ureter; Z82.49 Family history of ischemic heart disease and other diseases of the circulatory system; Z86.14 Personal history of Methicillin resistant Staphylococcus aureus infection; I25.2 Old myocardial infarction; Z79.4 Long term (current) use of insulin

== ENCOUNTER → 2019-03-20 | Day surgery (SDC) | payer MEDICARE, OTHER ==
[~2019-03-20] VITALS: Ht 152.4 cm; Wt 123.4 kg
[~2019-03-20] MED LIST changes: +CEFEPIME HYDROCH2 GM IJ; +CIPRO500 MG PO; +DOXYCYCLINE MO100 M1 PO; +GLUCOSAMINE &1 EACH PO; +HYDROCODONE-AC1 EAC1 PO; +KAPSPARGO SPRIN25 MG PO; +LEVOFLOXACIN500 MG PO; +MIRTAZAPINE15 M2 PO; +TRAMADOL HCL50 MG PO
[2019-03-20 14:20] VITALS: BP 147/52
[2019-03-20 15:16] VITALS: BP 146/74
[2019-03-20 15:31] VITALS: BP 152/80
[2019-03-20 15:46] VITALS: BP 153/90
[2019-03-22 14:06] LABS: ACID FAST SPEC PROCESSING Tissue Grinding (.)
[2019-05-02 08:08] LABS: ACID FAST CULTURE Negative (.)
== END | disposition home or self-care (01) ==
LOC: SDC 03-19 14:45
PROVIDERS: Podiatrist
DX: L03.115 Cellulitis of right lower limb (principal); I10 Essential (primary) hypertension; I25.2 Old myocardial infarction; I25.10 Atherosclerotic heart disease of native coronary artery without angina pectoris; E11.9 Type 2 diabetes mellitus without complications; E78.00 Pure hypercholesterolemia, unspecified; E66.01 Morbid (severe) obesity due to excess calories; Z68.43 Body mass index [BMI] 50.0-59.9, adult; Z95.5 Presence of coronary angioplasty implant and graft; Z98.890 Other specified postprocedural states; Z79.899 Other long term (current) drug therapy; Z83.3 Family history of diabetes mellitus; Z82.49 Family history of ischemic heart disease and other diseases of the circulatory system

== ENCOUNTER → 2019-04-03 | Outpatient (CLI) | payer MEDICARE, OTHER ==
[~2019-04-03] MED LIST changes: -CIPRO500 MG PO
== END | disposition home or self-care (01) ==
LOC: MAMMO 00:50
DX: N63.20 Unspecified lump in the left breast, unspecified quadrant (principal); R92.8 Other abnormal and inconclusive findings on diagnostic imaging of breast

== ENCOUNTER 2019-04-14 11:21 | Emergency (ER) | payer MEDICARE, OTHER ==
[~2019-04-14] VITALS: Ht 160 cm; Wt 111.1 kg
[2019-04-14 11:26] VITALS: BP 180/63
== END 2019-04-14 11:41 | disposition home or self-care (01) ==
LOC: ED 11:21
DX: S60.221A Contusion of right hand, initial encounter (principal); E11.9 Type 2 diabetes mellitus without complications; I25.10 Atherosclerotic heart disease of native coronary artery without angina pectoris; I10 Essential (primary) hypertension; I25.2 Old myocardial infarction; Z79.899 Other long term (current) drug therapy; Z79.01 Long term (current) use of anticoagulants; W22.8XXA Striking against or struck by other objects, initial encounter; Y93.89 Activity, other specified; Y92.89 Other specified places as the place of occurrence of the external cause; Y99.8 Other external cause status

== ENCOUNTER → 2019-04-24 | Day surgery (SDC) | payer MEDICARE, OTHER ==
[2019-04-22 12:15] LABS: BASO # 0.1 10*3/uL (0.0-0.1); EOS # 0.2 10*3/uL (0.0-0.4); EOS % 2.7 % (1.0-4.0); HEMATOCRIT 33.4 % (37.0-47.0); HEMOGLOBIN 9.6 g/dl (12.0-16.0); LYMPH # 2.6 10*3/uL (1.3-4.4); LYMPH % 31.9 % (27.0-41.0); MEAN CORPUSCULAR HGB 22.4 pg (27.0-31.0); MEAN CORPUSCULAR HGB CONC 28.7 g/dl (33.0-37.0); MEAN PLATELET VOLUME 9.6 fl (9.6-12.3); MONO # 0.6 10*3/uL (0.1-1.0); MONO % 6.8 % (3.0-9.0); NEUT # 4.6 10*3/uL (2.3-7.9); NEUT % 57.2 % (47.0-73.0); PLATELET COUNT AUTOMATED 243 10*3/uL (130-400); RED BLOOD COUNT 4.28 10*6/uL (4.10-5.10); RED CELL DISTRI WIDTH 18.4 % (0-14.5)
[2019-04-22 12:36] LABS: ACT PARTIAL THROMBO TIME 26.1 SECONDS (20.0-32.1); INTERNATIONAL NORM RATIO 1.7 (2.0-3.5)
[2019-04-22 12:40] LABS: CREATININE 1.19 mg/dL (0.55-1.02); POTASSIUM 3.8 mmol/L (3.5-5.1)
[~2019-04-24] VITALS: Ht 152.4 cm; Wt 111.1 kg
[~2019-04-24] MED LIST changes: +CIPRO500 MG PO
[2019-04-24 06:55] VITALS: BP 121/54
[2019-04-24 08:05] VITALS: BP 128/40
[2019-04-24 08:20] VITALS: BP 125/48
[2019-04-24 08:35] VITALS: BP 129/50
[2019-04-25 11:05] LABS: ACID FAST SPEC PROCESSING Tissue Grinding (.)
[2019-05-07 14:05] LABS: ANAEROBE RESULT 2 Finegoldia magna (.)
== END | disposition home or self-care (01) ==
LOC: SDC 04-22 13:15
PROVIDERS: Podiatrist
DX: E11.621 Type 2 diabetes mellitus with foot ulcer (principal); L97.912 Non-pressure chronic ulcer of unspecified part of right lower leg with fat layer exposed; E11.59 Type 2 diabetes mellitus with other circulatory complications; I10 Essential (primary) hypertension; I25.10 Atherosclerotic heart disease of native coronary artery without angina pectoris; L89.893 Pressure ulcer of other site, stage 3; I25.2 Old myocardial infarction; G47.30 Sleep apnea, unspecified; M19.90 Unspecified osteoarthritis, unspecified site; E66.01 Morbid (severe) obesity due to excess calories; Z68.42 Body mass index [BMI] 45.0-49.9, adult; Z79.899 Other long term (current) drug therapy; Z98.890 Other specified postprocedural states; Z82.49 Family history of ischemic heart disease and other diseases of the circulatory system; Z83.3 Family history of diabetes mellitus

== ENCOUNTER → 2019-07-09 | Outpatient (CLI) | payer MEDICARE, OTHER | END | disposition home or self-care (01) | LOC: US 00:32 | DX: R19.04 Left lower quadrant abdominal swelling, mass and lump (principal); I86.8 Varicose veins of other specified sites; D17.79 Benign lipomatous neoplasm of other sites; Z90.49 Acquired absence of other specified parts of digestive tract; Z90.710 Acquired absence of both cervix and uterus ==

== ENCOUNTER → 2019-12-13 | Outpatient (CLI) | payer MEDICARE, OTHER ==
[2019-12-13 09:55] LABS: BASO # 0.1 10*3/uL (0.0-0.1); BASO % 0.8 % (0.0-1.0); EOS # 0.2 10*3/uL (0.0-0.4); EOS % 2.6 % (1.0-4.0); HEMATOCRIT 38.4 % (37.0-47.0); LYMPH # 2.2 10*3/uL (1.3-4.4); MEAN CELL VOLUME 88.7 fl (81.0-99.0); MEAN CORPUSCULAR HGB 27.3 pg (27.0-31.0); MEAN CORPUSCULAR HGB CONC 30.7 g/dl (33.0-37.0); MEAN PLATELET VOLUME 9.1 fl (9.6-12.3); MONO # 0.4 10*3/uL (0.1-1.0); MONO % 6.3 % (3.0-9.0); NEUT # 3.7 10*3/uL (2.3-7.9); NEUT % 56.8 % (47.0-73.0); PLATELET COUNT AUTOMATED 194 10*3/uL (130-400); RED BLOOD COUNT 4.33 10*6/uL (4.10-5.10); RED CELL DISTRI WIDTH 14.4 % (0-14.5); WHITE BLOOD COUNT 6.6 10*3/uL (4.8-10.8)
[2019-12-13 10:28] LABS: BUN 25 mg/dl (7-24); CHLORIDE 104 mmol/L (98-107); CREATININE 0.77 mg/dL (0.55-1.02); POTASSIUM 4.1 mmol/L (3.5-5.1); SODIUM 141 mmol/L (136-145)
== END | disposition home or self-care (01) ==
LOC: LAB 05:48 → CT 10:00 → LAB 10:00
PROVIDERS: ATTEND Internal Medicine
DX: I25.10 Atherosclerotic heart disease of native coronary artery without angina pectoris (principal); N20.0 Calculus of kidney; R10.9 Unspecified abdominal pain; D64.9 Anemia, unspecified

== ENCOUNTER 2019-12-14 15:32 | Emergency (ER) | payer MEDICARE, OTHER ==
[~2019-12-14] VITALS: Ht 154.9 cm; Wt 109.8 kg
[2019-12-14 16:03] VITALS: BP 144/71
[2019-12-14 17:49] LABS: BASO # 0.1 10*3/uL (0.0-0.1); BASO % 0.9 % (0.0-1.0); EOS # 0.3 10*3/uL (0.0-0.4); EOS % 3.2 % (1.0-4.0); HEMATOCRIT 39.1 % (37.0-47.0); LYMPH # 2.4 10*3/uL (1.3-4.4); LYMPH % 30.3 % (27.0-41.0); MEAN CELL VOLUME 87.3 fl (81.0-99.0); MEAN CORPUSCULAR HGB CONC 30.9 g/dl (33.0-37.0); MEAN PLATELET VOLUME 9.9 fl (9.6-12.3); MONO # 0.6 10*3/uL (0.1-1.0); MONO % 7.1 % (3.0-9.0); NEUT # 4.5 10*3/uL (2.3-7.9); NEUT % 58.1 % (47.0-73.0); PLATELET COUNT AUTOMATED 244 10*3/uL (130-400); RED BLOOD COUNT 4.48 10*6/uL (4.10-5.10); RED CELL DISTRI WIDTH 14.3 % (0-14.5); WHITE BLOOD COUNT 7.8 10*3/uL (4.8-10.8)
[2019-12-14 17:57] LABS: ALBUMIN 3.7 gm/dl (3.1-4.5); ALKALINE PHOSPHATASE 146 U/L (45-117); BUN 24 mg/dl (7-24); CHLORIDE 101 mmol/L (98-107); CREATININE 0.95 mg/dL (0.55-1.02); SGOT/AST 18 IU/L (3-35); SGPT/ALT 21 U/L (12-78); SODIUM 139 mmol/L (136-145); TOTAL PROTEIN 7.8 gm/dL (6.4-8.2)
[2019-12-14 18:03] LABS: INTERNATIONAL NORM RATIO 2.1 (2.0-3.5)
== END 2019-12-14 19:20 | disposition home or self-care (01) ==
LOC: ED 15:32
PROVIDERS: Nurse Practitioner Family
DX: I82.402 Acute embolism and thrombosis of unspecified deep veins of left lower extremity (principal); M79.662 Pain in left lower leg; Z79.899 Other long term (current) drug therapy; Z79.01 Long term (current) use of anticoagulants; Z79.4 Long term (current) use of insulin

== ENCOUNTER → 2020-03-20 | Outpatient (CLI) | payer MEDICARE, OTHER ==
[~2020-03-20] MED LIST changes: +CENTRUM SILVER1 EAC1 PO; +LANTUS SOL100 UNIT/1 SC; +LISINOPRIL2.5 MG PO
== END | disposition home or self-care (01) ==
LOC: RAD 00:26
PROVIDERS: ATTEND Internal Medicine
DX: M54.89 Other dorsalgia (principal)

== ENCOUNTER 2020-05-02 06:19 | Emergency (ER) | payer MEDICARE, OTHER ==
[~2020-05-02] VITALS: Ht 154.9 cm; Wt 136.1 kg
[~2020-05-02 06:19] MED LIST changes: -CENTRUM SILVER1 EAC1 PO; -LANTUS SOL100 UNIT/1 SC; -LISINOPRIL2.5 MG PO
[2020-05-02 06:31] VITALS: BP 164/70
[2020-05-02] MEDS ORDERED: LISINOPRIL2.5 MG PO (21:57)
[2020-05-02] MEDS ORDERED: JANTOVEN5 MG PO (22:00)
[2020-05-02] MEDS ORDERED: CENTRUM SILVER1 EAC1 PO (22:00)
[2020-05-02] MEDS ORDERED: LANTUS SOL100 UNIT/1 SC (22:01)
== END 2020-05-02 06:37 | disposition home or self-care (01) ==
LOC: ED 06:19
DX: L30.8 Other specified dermatitis (principal); Z79.899 Other long term (current) drug therapy; Z79.01 Long term (current) use of anticoagulants; Z90.711 Acquired absence of uterus with remaining cervical stump; Z96.651 Presence of right artificial knee joint; Z96.652 Presence of left artificial knee joint; Z90.49 Acquired absence of other specified parts of digestive tract; Z98.890 Other specified postprocedural states

== ENCOUNTER 2020-05-02 21:40 | Emergency (ER) | payer MEDICARE, OTHER ==
[~2020-05-02] VITALS: Ht 154.9 cm; Wt 115.7 kg
[2020-05-02 21:49] VITALS: BP 157/60
[2020-05-02] MEDS ORDERED: LISINOPRIL2.5 MG PO (21:57)
[2020-05-02] MEDS ORDERED: JANTOVEN5 MG PO (22:00)
[2020-05-02] MEDS ORDERED: CENTRUM SILVER1 EAC1 PO (22:00)
[2020-05-02] MEDS ORDERED: LANTUS SOL100 UNIT/1 SC (22:01)
[2020-05-02 22:29] LABS: BASO % 0.2 % (0.0-1.0); HEMATOCRIT 37.5 % (37.0-47.0); LYMPH % 17.3 % (27.0-41.0); MEAN CELL VOLUME 84.8 fl (81.0-99.0); MEAN CORPUSCULAR HGB 26.9 pg (27.0-31.0); MEAN CORPUSCULAR HGB CONC 31.7 g/dl (33.0-37.0); MEAN PLATELET VOLUME 9.6 fl (9.6-12.3); MONO # 0.1 10*3/uL (0.1-1.0); MONO % 0.9 % (3.0-9.0); NEUT # 4.8 10*3/uL (2.3-7.9); NEUT % 80.9 % (47.0-73.0); PLATELET COUNT AUTOMATED 187 10*3/uL (130-400); RED BLOOD COUNT 4.42 10*6/uL (4.10-5.10); RED CELL DISTRI WIDTH 14.3 % (0-14.5); WHITE BLOOD COUNT 5.9 10*3/uL (4.8-10.8)
[2020-05-02 22:46] LABS: ALBUMIN 3.5 gm/dl (3.1-4.5); CREATININE 1.43 mg/dL (0.55-1.02); TOTAL PROTEIN 7.6 gm/dL (6.4-8.2)
[2020-05-02 22:46] LABS: INTERNATIONAL NORM RATIO 2.2 (2.0-3.5)
== END 2020-05-02 23:32 | disposition home or self-care (01) ==
LOC: ED 21:40
PROVIDERS: Internal Medicine
DX: T88.1XXA Other complications following immunization, not elsewhere classified, initial encounter (principal); E11.65 Type 2 diabetes mellitus with hyperglycemia; I25.10 Atherosclerotic heart disease of native coronary artery without angina pectoris; I10 Essential (primary) hypertension; Z79.899 Other long term (current) drug therapy; Z90.710 Acquired absence of both cervix and uterus; Z90.49 Acquired absence of other specified parts of digestive tract; Y92.89 Other specified places as the place of occurrence of the external cause

== ENCOUNTER → 2020-06-05 | Outpatient (CLI) | payer MEDICARE, OTHER ==
[~2020-06-05] MED LIST changes: +CENTRUM SILVER1 EAC1 PO; +LANTUS SOL100 UNIT/1 SC; +LISINOPRIL2.5 MG PO
[2020-06-05 07:36] LABS: BASO # 0.1 10*3/uL (0.0-0.1); BASO % 0.8 % (0.0-1.0); EOS # 0.4 10*3/uL (0.0-0.4); EOS % 4.2 % (1.0-4.0); HEMATOCRIT 41.6 % (37.0-47.0); LYMPH # 2.4 10*3/uL (1.3-4.4); MEAN CELL VOLUME 87.8 fl (81.0-99.0); MEAN CORPUSCULAR HGB 27.2 pg (27.0-31.0); MEAN PLATELET VOLUME 9.8 fl (9.6-12.3); MONO # 0.5 10*3/uL (0.1-1.0); MONO % 6.3 % (3.0-9.0); NEUT # 5.1 10*3/uL (2.3-7.9); NEUT % 60.5 % (47.0-73.0); PLATELET COUNT AUTOMATED 173 10*3/uL (130-400); RED BLOOD COUNT 4.74 10*6/uL (4.10-5.10); RED CELL DISTRI WIDTH 14.4 % (0-14.5); WHITE BLOOD COUNT 8.4 10*3/uL (4.8-10.8)
[2020-06-05 08:05] LABS: ALBUMIN 3.9 gm/dl (3.1-4.5); CREATININE 1.09 mg/dL (0.55-1.02); FREE T4 0.77 ng/dl (0.76-1.46); POTASSIUM 4.6 mmol/L (3.5-5.1); TOTAL PROTEIN 7.7 gm/dL (6.4-8.2)
[2020-06-05 08:09] LABS: THYROID STIM HORMONE (HS) 1.36 uIU/ml (0.358-4.75)
== END | disposition home or self-care (01) ==
LOC: LAB 02:44
PROVIDERS: ATTEND Internal Medicine
DX: Z00.01 Encounter for general adult medical examination with abnormal findings (principal); I10 Essential (primary) hypertension; E11.9 Type 2 diabetes mellitus without complications; E78.2 Mixed hyperlipidemia; E55.9 Vitamin D deficiency, unspecified

== ENCOUNTER → 2021-05-06 | Outpatient (CLI) | payer MEDICARE, OTHER | END | disposition home or self-care (01) | LOC: US 02:55 | PROVIDERS: ATTEND Internal Medicine | DX: I65.23 Occlusion and stenosis of bilateral carotid arteries (principal); E04.2 Nontoxic multinodular goiter; R42 Dizziness and giddiness ==

== ENCOUNTER → 2021-05-25 | Outpatient (CLI) | payer MEDICARE, OTHER ==
[2021-05-25 07:44] LABS: BASO # 0.1 10*3/uL (0.0-0.1); BASO % 0.8 % (0.0-1.0); EOS # 0.2 10*3/uL (0.0-0.4); HEMATOCRIT 42.9 % (37.0-47.0); LYMPH % 27.8 % (27.0-41.0); MEAN CELL VOLUME 88.6 fl (81.0-99.0); MEAN CORPUSCULAR HGB 28.5 pg (27.0-31.0); MEAN CORPUSCULAR HGB CONC 32.2 g/dl (33.0-37.0); MEAN PLATELET VOLUME 9.8 fl (9.6-12.3); MONO # 0.5 10*3/uL (0.1-1.0); MONO % 6.4 % (3.0-9.0); NEUT # 4.4 10*3/uL (2.3-7.9); NEUT % 61.4 % (47.0-73.0); PLATELET COUNT AUTOMATED 171 10*3/uL (130-400); RED BLOOD COUNT 4.84 10*6/uL (4.10-5.10); RED CELL DISTRI WIDTH 14.2 % (0-14.5); WHITE BLOOD COUNT 7.1 10*3/uL (4.8-10.8)
[2021-05-25 08:01] LABS: CREATININE 1.19 mg/dL (0.55-1.02); POTASSIUM 4.4 mmol/L (3.5-5.1); TOTAL PROTEIN 7.8 gm/dL (6.4-8.2)
[2021-05-25 08:07] LABS: FREE T4 0.8 ng/dl (0.76-1.46); THYROID STIM HORMONE (HS) 1.97 uIU/ml (0.358-4.75)
[2021-05-25 09:07] LABS: VITAMIN D, 25-HYDROXY 30.3 ng/mL (30-100)
== END | disposition home or self-care (01) ==
LOC: LAB 07:02
PROVIDERS: ATTEND Internal Medicine
DX: Z23 Encounter for immunization (principal); E55.9 Vitamin D deficiency, unspecified; I10 Essential (primary) hypertension; E11.65 Type 2 diabetes mellitus with hyperglycemia

== ENCOUNTER → 2021-06-04 | Outpatient (CLI) | payer MEDICARE, OTHER ==
[~2021-06-04] MED LIST changes: +FARXIGA5 M1 PO; +LIFE-LINE GLUC480 ML PO
[2021-06-04 07:35] LABS: BASO # 0.1 10*3/uL (0.0-0.1); BASO % 0.8 % (0.0-1.0); EOS # 0.2 10*3/uL (0.0-0.4); EOS % 2.8 % (1.0-4.0); HEMATOCRIT 42.4 % (37.0-47.0); LYMPH % 31.3 % (27.0-41.0); MEAN CELL VOLUME 87.1 fl (81.0-99.0); MEAN CORPUSCULAR HGB 27.7 pg (27.0-31.0); MEAN CORPUSCULAR HGB CONC 31.8 g/dl (33.0-37.0); MEAN PLATELET VOLUME 9.7 fl (9.6-12.3); MONO # 0.4 10*3/uL (0.1-1.0); MONO % 6.4 % (3.0-9.0); NEUT # 3.7 10*3/uL (2.3-7.9); NEUT % 58.4 % (47.0-73.0); PLATELET COUNT AUTOMATED 178 10*3/uL (130-400); RED BLOOD COUNT 4.87 10*6/uL (4.10-5.10); RED CELL DISTRI WIDTH 14.2 % (0-14.5); WHITE BLOOD COUNT 6.4 10*3/uL (4.8-10.8)
[2021-06-04 08:00] LABS: CREATININE 1.12 mg/dL (0.55-1.02); FREE T4 0.88 ng/dl (0.76-1.46); POTASSIUM 4.3 mmol/L (3.5-5.1); TOTAL PROTEIN 7.8 gm/dL (6.4-8.2)
[2021-06-04 08:05] LABS: THYROID STIM HORMONE (HS) 1.89 uIU/ml (0.358-4.75)
[2021-06-04 09:15] LABS: VITAMIN D, 25-HYDROXY 31.9 ng/mL (30-100)
== END | disposition home or self-care (01) ==
LOC: LAB 06:52
PROVIDERS: ATTEND Internal Medicine
DX: R79.89 Other specified abnormal findings of blood chemistry (principal); D64.9 Anemia, unspecified; I10 Essential (primary) hypertension; E55.9 Vitamin D deficiency, unspecified; Z79.899 Other long term (current) drug therapy

== ENCOUNTER → 2021-09-15 | Outpatient (CLI) | payer MEDICARE, OTHER | END | disposition home or self-care (01) | LOC: RESCLI 10:31 | PROVIDERS: ATTEND Family Medicine | DX: E11.22 Type 2 diabetes mellitus with diabetic chronic kidney disease (principal); J45.909 Unspecified asthma, uncomplicated; I13.10 Hypertensive heart and chronic kidney disease without heart failure, with stage 1 through stage 4 chronic kidney disease, or unspecified chronic kidney disease; I25.10 Atherosclerotic heart disease of native coronary artery without angina pectoris; Z90.49 Acquired absence of other specified parts of digestive tract; E66.9 Obesity, unspecified; Z79.899 Other long term (current) drug therapy; Z79.82 Long term (current) use of aspirin ==

== ENCOUNTER → 2022-04-20 | Outpatient (CLI) | payer MEDICARE, OTHER | END | disposition home or self-care (01) | LOC: WOUNDCARE 01:59 | PROVIDERS: ATTEND Nurse Practitioner Family | DX: T81.31XA Disruption of external operation (surgical) wound, not elsewhere classified, initial encounter (principal); L02.211 Cutaneous abscess of abdominal wall; E11.622 Type 2 diabetes mellitus with other skin ulcer; L98.492 Non-pressure chronic ulcer of skin of other sites with fat layer exposed; E78.5 Hyperlipidemia, unspecified; I10 Essential (primary) hypertension; I25.2 Old myocardial infarction; Z79.4 Long term (current) use of insulin; Z79.82 Long term (current) use of aspirin; Z95.5 Presence of coronary angioplasty implant and graft; Z95.818 Presence of other cardiac implants and grafts; Z96.653 Presence of artificial knee joint, bilateral; Z95.1 Presence of aortocoronary bypass graft; Y92.238 Other place in hospital as the place of occurrence of the external cause; Y83.8 Other surgical procedures as the cause of abnormal reaction of the patient, or of later complication, without mention of misadventure at the time of the procedure ==

== ENCOUNTER → 2022-04-27 | Outpatient (CLI) | payer MEDICARE, OTHER | END | disposition home or self-care (01) | LOC: WOUNDCARE 03:16 | PROVIDERS: ATTEND Nurse Practitioner Family | DX: T81.31XD Disruption of external operation (surgical) wound, not elsewhere classified, subsequent encounter (principal); E11.622 Type 2 diabetes mellitus with other skin ulcer; L98.492 Non-pressure chronic ulcer of skin of other sites with fat layer exposed; E78.5 Hyperlipidemia, unspecified; I25.2 Old myocardial infarction; I10 Essential (primary) hypertension; Z95.5 Presence of coronary angioplasty implant and graft; Z90.710 Acquired absence of both cervix and uterus; Z95.818 Presence of other cardiac implants and grafts; Z96.653 Presence of artificial knee joint, bilateral; Z95.1 Presence of aortocoronary bypass graft; Y83.8 Other surgical procedures as the cause of abnormal reaction of the patient, or of later complication, without mention of misadventure at the time of the procedure ==

== ENCOUNTER → 2022-05-10 | Outpatient (CLI) | payer MEDICARE, OTHER | END | disposition home or self-care (01) | LOC: WOUNDCARE 01:20 | PROVIDERS: ATTEND Nurse Practitioner Family | DX: T81.30XD Disruption of wound, unspecified, subsequent encounter (principal); L02.211 Cutaneous abscess of abdominal wall; E11.9 Type 2 diabetes mellitus without complications; E78.5 Hyperlipidemia, unspecified; I25.2 Old myocardial infarction; I10 Essential (primary) hypertension; Z95.5 Presence of coronary angioplasty implant and graft; Z90.710 Acquired absence of both cervix and uterus; Z95.818 Presence of other cardiac implants and grafts; Z96.653 Presence of artificial knee joint, bilateral; Z95.1 Presence of aortocoronary bypass graft; Y83.8 Other surgical procedures as the cause of abnormal reaction of the patient, or of later complication, without mention of misadventure at the time of the procedure ==

== ENCOUNTER → 2022-05-17 | Outpatient (CLI) | payer MEDICARE, OTHER | END | disposition home or self-care (01) | LOC: WOUNDCARE 02:08 | PROVIDERS: ATTEND Nurse Practitioner Family | DX: T81.31XD Disruption of external operation (surgical) wound, not elsewhere classified, subsequent encounter (principal); E11.622 Type 2 diabetes mellitus with other skin ulcer; L98.492 Non-pressure chronic ulcer of skin of other sites with fat layer exposed; E78.5 Hyperlipidemia, unspecified; I25.2 Old myocardial infarction; I10 Essential (primary) hypertension; Z95.5 Presence of coronary angioplasty implant and graft; Z95.818 Presence of other cardiac implants and grafts; Z96.653 Presence of artificial knee joint, bilateral; Z95.1 Presence of aortocoronary bypass graft; Y83.8 Other surgical procedures as the cause of abnormal reaction of the patient, or of later complication, without mention of misadventure at the time of the procedure ==

== ENCOUNTER → 2022-07-08 | Outpatient (CLI) | payer MEDICARE, OTHER ==
[~2022-07-08] MED LIST changes: +JANTOVEN2.5 MG PO; +LASIX40 MG PO; +LISINOPRIL10 M1 PO; +LOPRESSOR25 MG PO; +OXYGEN NAS; +SYMB160 INH
[2022-07-08 09:54] LABS: INTERNATIONAL NORM RATIO 1.2 (2.0-3.5)
[2022-07-08 10:01] LABS: POTASSIUM 4.7 mmol/L (3.4-5.1)
== END | disposition home or self-care (01) ==
LOC: LAB 08:29
PROVIDERS: Internal Medicine; ATTEND Nurse Practitioner
DX: N18.9 Chronic kidney disease, unspecified (principal)

== ENCOUNTER → 2022-09-02 | Outpatient (CLI) | payer MEDICARE, OTHER ==
[2022-09-02 08:34] LABS: POTASSIUM 4.6 mmol/L (3.4-5.1)
== END | disposition home or self-care (01) ==
LOC: LAB 07:39
PROVIDERS: ATTEND Internal Medicine Interventional Cardiology
DX: I50.33 Acute on chronic diastolic (congestive) heart failure (principal); Z98.890 Other specified postprocedural states; Z95.818 Presence of other cardiac implants and grafts

== ENCOUNTER → 2022-09-23 | Outpatient (CLI) | payer MEDICARE, OTHER ==
[~2022-09-23] MED LIST changes: +BUMETANIDE1 MG PO; +GLUCOSAMINE1000 MG PO; +IMDUR SA30 MG PO; +ISOSORBIDE DINI30 MG PO; +LISINOPRIL5 MG PO; +Lopressor25 MG PO; +METOPROLOL SUCC50 M1 PO; +MULTIVITAMIN1 EACH PO; +WARFARIN SOD5 MG PO
[2022-09-23 07:55] LABS: BASO # 0.1 10*3/uL (0.0-0.1); BASO % 0.5 % (0.0-1.0); EOS # 0.3 10*3/uL (0.0-0.4); EOS % 2.2 % (1.0-4.0); HEMATOCRIT 29.5 % (37.0-47.0); LYMPH # 2.4 10*3/uL (1.3-4.4); LYMPH % 19.6 % (27.0-41.0); MEAN CELL VOLUME 90.8 fl (81.0-99.0); MEAN CORPUSCULAR HGB 29.2 pg (27.0-31.0); MEAN CORPUSCULAR HGB CONC 32.2 g/dl (33.0-37.0); MEAN PLATELET VOLUME 10.1 fl (9.6-12.3); MONO % 7.9 % (3.0-9.0); NEUT # 8.5 10*3/uL (2.3-7.9); NEUT % 69.1 % (47.0-73.0); PLATELET COUNT AUTOMATED 193 10*3/uL (130-400); RED BLOOD COUNT 3.25 10*6/uL (4.10-5.10); RED CELL DISTRI WIDTH 15.2 % (0-14.5); WHITE BLOOD COUNT 12.3 10*3/uL (4.8-10.8)
[2022-09-23 08:30] LABS: POTASSIUM 4.8 mmol/L (3.4-5.1)
== END | disposition home or self-care (01) ==
LOC: LAB 07:17
PROVIDERS: ATTEND Physician Assistant
DX: S35.513A Injury of unspecified iliac artery, initial encounter (principal); I21.4 Non-ST elevation (NSTEMI) myocardial infarction; X58.XXXA Exposure to other specified factors, initial encounter; Y93.89 Activity, other specified; Y92.89 Other specified places as the place of occurrence of the external cause; Y99.8 Other external cause status

== ENCOUNTER 2022-09-26 20:18 | Emergency (ER) | payer MEDICARE, OTHER ==
[~2022-09-26] VITALS: Ht 154.9 cm; Wt 126.1 kg
[2022-09-26 21:25] LABS: BASO % 0.4 % (0.0-1.0); EOS # 0.1 10*3/uL (0.0-0.4); EOS % 1.4 % (1.0-4.0); HEMATOCRIT 24.7 % (37.0-47.0); LYMPH # 1.2 10*3/uL (1.3-4.4); LYMPH % 12.1 % (27.0-41.0); MEAN CELL VOLUME 90.5 fl (81.0-99.0); MEAN CORPUSCULAR HGB 28.9 pg (27.0-31.0); MEAN PLATELET VOLUME 9.7 fl (9.6-12.3); MONO % 9.7 % (3.0-9.0); NEUT # 7.5 10*3/uL (2.3-7.9); NEUT % 75.6 % (47.0-73.0); PLATELET COUNT AUTOMATED 269 10*3/uL (130-400); RED BLOOD COUNT 2.73 10*6/uL (4.10-5.10); RED CELL DISTRI WIDTH 14.8 % (0-14.5); WHITE BLOOD COUNT 9.9 10*3/uL (4.8-10.8)
[2022-09-26 21:45] LABS: POTASSIUM 4.1 mmol/L (3.4-5.1); TOTAL PROTEIN 6.3 gm/dL (6.0-8.0)
[2022-09-26 21:46] LABS: ACT PARTIAL THROMBO TIME 31.7 SECONDS (20.0-32.1); INTERNATIONAL NORM RATIO 1.5 (2.0-3.5)
[2022-09-26] MEDS ORDERED: CLOPIDOGREL75 MG PO (22:25)
[2022-09-26] MEDS ORDERED: Coumadin2.5 MG PO (22:32)
[2022-09-26] MEDS ORDERED: Coumadin5 MG PO (22:33)
[2022-09-26] MEDS ORDERED: GLUCOSAMINE CH1 EAC5 PO (22:36)
[2022-09-26 23:07] LABS: BILIRUBIN Negative (Negative); BLOOD Negative (Negative); CLARITY Clear (Clear); COLOR Yellow (Yellow); GLUCOSE Negative (Negative); KETONE Negative (Negative); LEUKO ESTERASE Negative (Negative); NITRITE Negative (Negative); UROBILINOGEN 0.2 E.U./dl (0.0-1.0)
[2022-09-26 23:26] LABS: BACTERIA 1+; EPITHELIAL CELLS 21-30; WBC 0-2 wbc/hpf (0-5)
[2022-09-27 07:35] LABS: BASO % 0.5 % (0.0-1.0); EOS # 0.2 10*3/uL (0.0-0.4); EOS % 2.1 % (1.0-4.0); HEMATOCRIT 23.5 % (37.0-47.0); LYMPH # 1.1 10*3/uL (1.3-4.4); LYMPH % 14.2 % (27.0-41.0); MEAN CELL VOLUME 89.4 fl (81.0-99.0); MEAN CORPUSCULAR HGB 28.5 pg (27.0-31.0); MEAN CORPUSCULAR HGB CONC 31.9 g/dl (33.0-37.0); MEAN PLATELET VOLUME 9.5 fl (9.6-12.3); MONO # 0.7 10*3/uL (0.1-1.0); MONO % 9.1 % (3.0-9.0); NEUT # 5.5 10*3/uL (2.3-7.9); NEUT % 73.2 % (47.0-73.0); PLATELET COUNT AUTOMATED 258 10*3/uL (130-400); RED BLOOD COUNT 2.63 10*6/uL (4.10-5.10); RED CELL DISTRI WIDTH 14.8 % (0-14.5); WHITE BLOOD COUNT 7.6 10*3/uL (4.8-10.8)
[2022-09-27 07:57] LABS: POTASSIUM 4.3 mmol/L (3.4-5.1)
[2022-09-28 07:20] LABS: BASO % 0.5 % (0.0-1.0); EOS # 0.2 10*3/uL (0.0-0.4); EOS % 3.4 % (1.0-4.0); LYMPH # 0.9 10*3/uL (1.3-4.4); LYMPH % 13.1 % (27.0-41.0); MEAN CELL VOLUME 88.9 fl (81.0-99.0); MEAN CORPUSCULAR HGB 28.1 pg (27.0-31.0); MEAN CORPUSCULAR HGB CONC 31.7 g/dl (33.0-37.0); MEAN PLATELET VOLUME 9.5 fl (9.6-12.3); MONO # 0.6 10*3/uL (0.1-1.0); MONO % 9.4 % (3.0-9.0); NEUT # 4.8 10*3/uL (2.3-7.9); PLATELET COUNT AUTOMATED 318 10*3/uL (130-400); WHITE BLOOD COUNT 6.5 10*3/uL (4.8-10.8)
[2022-09-28 16:55] VITALS: BP 127/50
[2022-10-03] MEDS ORDERED: AUGMENTIN 500500 M1 PO (15:42)
[2022-10-03] MEDS ORDERED: VIBRAMYCIN100 MG PO (15:42)
== END 2022-09-28 16:56 | disposition short-term general hospital (02) ==
LOC: ED 20:18
PROVIDERS: Internal Medicine
DX: I21.4 Non-ST elevation (NSTEMI) myocardial infarction (principal); M25.512 Pain in left shoulder; E11.9 Type 2 diabetes mellitus without complications; I25.10 Atherosclerotic heart disease of native coronary artery without angina pectoris; I10 Essential (primary) hypertension; I25.2 Old myocardial infarction; Z86.718 Personal history of other venous thrombosis and embolism; Z90.49 Acquired absence of other specified parts of digestive tract; Z90.710 Acquired absence of both cervix and uterus; Z96.653 Presence of artificial knee joint, bilateral; Z98.890 Other specified postprocedural states; Z95.5 Presence of coronary angioplasty implant and graft

== ENCOUNTER → 2022-10-21 | Outpatient (CLI) | payer MEDICARE, OTHER ==
[~2022-10-21] MED LIST changes: +AUGMENTIN 500500 M1 PO; +CLOPIDOGREL75 MG PO; +Coumadin2.5 MG PO; +Coumadin5 MG PO; +GLUCOSAMINE CH1 EAC5 PO; +VIBRAMYCIN100 MG PO
[2022-10-21 13:16] LABS: POTASSIUM 5.3 mmol/L (3.4-5.1)
== END | disposition home or self-care (01) ==
LOC: LAB 12:30
PROVIDERS: ATTEND Hospitalist
DX: E87.1 Hypo-osmolality and hyponatremia (principal)

== ENCOUNTER 2022-10-24 22:34 | Emergency (ER) | payer MEDICARE, OTHER ==
[2022-10-24 22:40] VITALS: BP 129/71
== END 2022-10-25 04:03 | disposition home or self-care (01) ==
LOC: ED 22:34
DX: Z48.00 Encounter for change or removal of nonsurgical wound dressing (principal); Z90.710 Acquired absence of both cervix and uterus; Z96.653 Presence of artificial knee joint, bilateral; Z98.890 Other specified postprocedural states; Z95.5 Presence of coronary angioplasty implant and graft

== ENCOUNTER → 2022-10-28 | Outpatient (CLI) | payer MEDICARE, OTHER ==
[2022-10-28 11:36] LABS: BASO # 0.1 10*3/uL (0.0-0.1); BASO % 1.1 % (0.0-1.0); EOS # 0.2 10*3/uL (0.0-0.4); EOS % 3.5 % (1.0-4.0); HEMATOCRIT 28.4 % (37.0-47.0); LYMPH # 1.7 10*3/uL (1.3-4.4); LYMPH % 31.8 % (27.0-41.0); MEAN CELL VOLUME 89.3 fl (81.0-99.0); MEAN CORPUSCULAR HGB 28.3 pg (27.0-31.0); MEAN CORPUSCULAR HGB CONC 31.7 g/dl (33.0-37.0); MEAN PLATELET VOLUME 9.1 fl (9.6-12.3); MONO # 0.5 10*3/uL (0.1-1.0); MONO % 9.7 % (3.0-9.0); NEUT # 2.9 10*3/uL (2.3-7.9); NEUT % 53.5 % (47.0-73.0); PLATELET COUNT AUTOMATED 216 10*3/uL (130-400); RED BLOOD COUNT 3.18 10*6/uL (4.10-5.10); RED CELL DISTRI WIDTH 18.2 % (0-14.5); WHITE BLOOD COUNT 5.4 10*3/uL (4.8-10.8)
== END | disposition home or self-care (01) ==
LOC: LAB 10:54
PROVIDERS: ATTEND Internal Medicine
DX: D72.819 Decreased white blood cell count, unspecified (principal)

== ENCOUNTER 2022-12-16 08:46 | Emergency (ER) | payer MEDICARE, OTHER ==
[~2022-12-16] VITALS: Ht 154.9 cm; Wt 120.9 kg
[~2022-12-16 08:46] MED LIST changes: +AMOX-CLAV 875-1 EACH PO
[2022-12-16 08:50] VITALS: BP 136/47
[2022-12-16 09:23] LABS: BASO % 0.4 % (0.0-1.0); EOS # 0.2 10*3/uL (0.0-0.4); EOS % 2.6 % (1.0-4.0); HEMATOCRIT 33.4 % (37.0-47.0); LYMPH % 27.9 % (27.0-41.0); MEAN CELL VOLUME 86.8 fl (81.0-99.0); MEAN CORPUSCULAR HGB CONC 29.9 g/dl (33.0-37.0); MEAN PLATELET VOLUME 8.8 fl (9.6-12.3); MONO # 0.4 10*3/uL (0.1-1.0); MONO % 6.2 % (3.0-9.0); NEUT # 4.4 10*3/uL (2.3-7.9); NEUT % 62.5 % (47.0-73.0); PLATELET COUNT AUTOMATED 273 10*3/uL (130-400); RED BLOOD COUNT 3.85 10*6/uL (4.10-5.10)
[2022-12-16 09:43] LABS: ACT PARTIAL THROMBO TIME 40.9 SECONDS (20.0-32.1)
[2022-12-16 09:48] LABS: ALKALINE PHOSPHATASE 120 U/L (46-116); BUN 20 mg/dl (9-23); CHLORIDE 100 mmol/L (98-107); LIPASE 46 U/L (12-53); TOTAL PROTEIN 6.4 gm/dL (6.0-8.0)
[2022-12-16 09:50] LABS: SGPT/ALT < 7 U/L (5-49)
[2022-12-16 10:36] LABS: BILIRUBIN Negative (Negative); BLOOD Negative (Negative); CLARITY Clear (Clear); COLOR Yellow (Yellow); GLUCOSE 3+ (Negative); KETONE Negative (Negative); LEUKO ESTERASE Negative (Negative); NITRITE Negative (Negative); PH 6.5 (4.5-8.0); UROBILINOGEN 0.2 E.U./dl (0.0-1.0)
[2022-12-16 10:46] LABS: BACTERIA TRACE; YEAST TRACE
== END 2022-12-16 14:30 | disposition short-term general hospital (02) ==
LOC: ED 08:46
PROVIDERS: Emergency Medicine
DX: I21.4 Non-ST elevation (NSTEMI) myocardial infarction (principal); M79.602 Pain in left arm; M54.2 Cervicalgia; E11.9 Type 2 diabetes mellitus without complications; I25.10 Atherosclerotic heart disease of native coronary artery without angina pectoris; I10 Essential (primary) hypertension; I25.2 Old myocardial infarction; Z88.8 Allergy status to other drugs, medicaments and biological substances; Z90.710 Acquired absence of both cervix and uterus; Z96.653 Presence of artificial knee joint, bilateral; Z90.49 Acquired absence of other specified parts of digestive tract; Z98.890 Other specified postprocedural states; Z95.5 Presence of coronary angioplasty implant and graft

== ENCOUNTER → 2022-12-31 | Outpatient (CLI) | payer MEDICARE, OTHER ==
[2022-12-31 08:25] LABS: POTASSIUM 3.9 mmol/L (3.4-5.1)
== END | disposition home or self-care (01) ==
LOC: LAB 07:44
DX: I25.5 Ischemic cardiomyopathy (principal)

== ENCOUNTER → 2023-01-20 | Outpatient (CLI) | payer MEDICARE, OTHER ==
[2023-01-20 08:01] LABS: POTASSIUM 4.6 mmol/L (3.4-5.1)
== END | disposition home or self-care (01) ==
LOC: LAB 07:21
PROVIDERS: ATTEND Internal Medicine Interventional Cardiology
DX: I25.10 Atherosclerotic heart disease of native coronary artery without angina pectoris (principal); I51.9 Heart disease, unspecified; I50.33 Acute on chronic diastolic (congestive) heart failure; Z95.5 Presence of coronary angioplasty implant and graft

== ENCOUNTER → 2023-02-14 | Outpatient (CLI) | payer MEDICARE, OTHER ==
[2023-02-14 11:48] LABS: POTASSIUM 4.3 mmol/L (3.4-5.1)
== END | disposition home or self-care (01) ==
LOC: LAB 10:54
PROVIDERS: ATTEND Internal Medicine Interventional Cardiology
DX: I25.10 Atherosclerotic heart disease of native coronary artery without angina pectoris (principal); I50.33 Acute on chronic diastolic (congestive) heart failure; I51.9 Heart disease, unspecified; Z79.899 Other long term (current) drug therapy; Z98.890 Other specified postprocedural states; Z95.818 Presence of other cardiac implants and grafts; Z95.5 Presence of coronary angioplasty implant and graft

== ENCOUNTER → 2023-02-22 | Outpatient (CLI) | payer MEDICARE, OTHER ==
[2023-02-22 15:12] LABS: POTASSIUM 4.5 mmol/L (3.4-5.1)
== END | disposition home or self-care (01) ==
LOC: LAB 14:35
PROVIDERS: ATTEND Internal Medicine Interventional Cardiology
DX: I11.0 Hypertensive heart disease with heart failure (principal); I50.33 Acute on chronic diastolic (congestive) heart failure; I25.10 Atherosclerotic heart disease of native coronary artery without angina pectoris; Z79.899 Other long term (current) drug therapy; Z95.818 Presence of other cardiac implants and grafts; Z98.890 Other specified postprocedural states

== ENCOUNTER → 2023-04-04 | Outpatient (CLI) | payer MEDICARE, OTHER ==
[2023-04-04 16:41] LABS: BASO # 0.1 10*3/uL (0.0-0.1); EOS # 0.2 10*3/uL (0.0-0.4); EOS % 2.9 % (1.0-4.0); HEMATOCRIT 37.3 % (37.0-47.0); LYMPH # 2.9 10*3/uL (1.3-4.4); LYMPH % 38.3 % (27.0-41.0); MEAN CELL VOLUME 79.5 fl (81.0-99.0); MEAN CORPUSCULAR HGB 25.2 pg (27.0-31.0); MEAN CORPUSCULAR HGB CONC 31.6 g/dl (33.0-37.0); MEAN PLATELET VOLUME 9.1 fl (9.6-12.3); MONO # 0.5 10*3/uL (0.1-1.0); MONO % 6.8 % (3.0-9.0); NEUT # 3.8 10*3/uL (2.3-7.9); NEUT % 50.3 % (47.0-73.0); PLATELET COUNT AUTOMATED 269 10*3/uL (130-400); RED BLOOD COUNT 4.69 10*6/uL (4.10-5.10); RED CELL DISTRI WIDTH 16.5 % (0-14.5); WHITE BLOOD COUNT 7.6 10*3/uL (4.8-10.8)
[2023-04-04 17:22] LABS: FREE T4 0.96 ng/dl (0.89-1.76); POTASSIUM 4.7 mmol/L (3.4-5.1); TOTAL PROTEIN 7.5 gm/dL (6.0-8.0)
[2023-04-04 17:23] LABS: VITAMIN D, 25-HYDROXY 46.8 ng/mL (30-100)
== END | disposition home or self-care (01) ==
LOC: LAB 15:04 → US 15:30
PROVIDERS: ATTEND Internal Medicine
DX: R16.1 Splenomegaly, not elsewhere classified (principal); Z13.0 Encounter for screening for diseases of the blood and blood-forming organs and certain disorders involving the immune mechanism; Z13.1 Encounter for screening for diabetes mellitus; Z13.21 Encounter for screening for nutritional disorder; Z13.220 Encounter for screening for lipoid disorders; Z13.29 Encounter for screening for other suspected endocrine disorder; Z13.6 Encounter for screening for cardiovascular disorders; Z13.89 Encounter for screening for other disorder; Z13.9 Encounter for screening, unspecified; Z90.49 Acquired absence of other specified parts of digestive tract; I10 Essential (primary) hypertension; E11.65 Type 2 diabetes mellitus with hyperglycemia; R10.84 Generalized abdominal pain; E78.5 Hyperlipidemia, unspecified; D64.9 Anemia, unspecified; M79.81 Nontraumatic hematoma of soft tissue

== ENCOUNTER → 2023-08-17 | Day surgery (SDC) | payer MEDICARE, OTHER ==
[~2023-08-17] VITALS: Ht 152.4 cm; Wt 103.4 kg
[~2023-08-17] MED LIST changes: +ALDACTONE25 M1 PO; +ELIQUIS5 M1 PO; +LOPRESSOR100 M1 PO; +Lidocaine Hydrochloride 2% 10 ML AMP IM ONE; +PROPOFOL 200 MG/20 ML VIAL IV ONE; +SODIUM CHLORIDE 0.9% 1,000 ML IV ONE; +ZESTRIL5 MG PO
[2023-08-17 09:25] VITALS: BP 114/32
[2023-08-17 10:55] VITALS: BP 125/52
[2023-08-17 11:10] VITALS: BP 119/47
[2023-08-17 11:30] VITALS: BP 120/48
== END | disposition home or self-care (01) ==
LOC: SDC 08-15 08:45
PROVIDERS: ATTEND Internal Medicine Cardiovascular Disease
DX: I35.0 Nonrheumatic aortic (valve) stenosis (principal); I07.1 Rheumatic tricuspid insufficiency; N18.30 Chronic kidney disease, stage 3 unspecified; I13.0 Hypertensive heart and chronic kidney disease with heart failure and stage 1 through stage 4 chronic kidney disease, or unspecified chronic kidney disease; E11.22 Type 2 diabetes mellitus with diabetic chronic kidney disease; N18.32 Chronic kidney disease, stage 3b; I50.41 Acute combined systolic (congestive) and diastolic (congestive) heart failure; N17.9 Acute kidney failure, unspecified; I25.2 Old myocardial infarction; I25.10 Atherosclerotic heart disease of native coronary artery without angina pectoris; J44.9 Chronic obstructive pulmonary disease, unspecified; M19.90 Unspecified osteoarthritis, unspecified site; E78.2 Mixed hyperlipidemia; G47.33 Obstructive sleep apnea (adult) (pediatric); E66.01 Morbid (severe) obesity due to excess calories; Z86.16 Personal history of COVID-19; Z90.710 Acquired absence of both cervix and uterus; Z90.49 Acquired absence of other specified parts of digestive tract; Z96.651 Presence of right artificial knee joint; Z96.652 Presence of left artificial knee joint; Z95.5 Presence of coronary angioplasty implant and graft; Z95.818 Presence of other cardiac implants and grafts; Z98.890 Other specified postprocedural states; Z79.01 Long term (current) use of anticoagulants; Z79.899 Other long term (current) drug therapy; Z88.7 Allergy status to serum and vaccine

== ENCOUNTER → 2023-09-11 | Outpatient (CLI) | payer MEDICARE, OTHER ==
[~2023-09-11] MED LIST changes: +Imdur SA60 MG PO; -Lidocaine Hydrochloride 2% 10 ML AMP IM ONE; -PROPOFOL 200 MG/20 ML VIAL IV ONE; -SODIUM CHLORIDE 0.9% 1,000 ML IV ONE
== END | disposition home or self-care (01) ==
LOC: RESCLI 02:12
PROVIDERS: ATTEND Student in an Organized Health Care Education/Training Program
DX: K21.9 Gastro-esophageal reflux disease without esophagitis (principal); E11.21 Type 2 diabetes mellitus with diabetic nephropathy; I11.0 Hypertensive heart disease with heart failure; I50.30 Unspecified diastolic (congestive) heart failure; I25.10 Atherosclerotic heart disease of native coronary artery without angina pectoris; E78.5 Hyperlipidemia, unspecified; J45.909 Unspecified asthma, uncomplicated; I82.90 Acute embolism and thrombosis of unspecified vein; Z82.49 Family history of ischemic heart disease and other diseases of the circulatory system; Z98.890 Other specified postprocedural states; Z79.4 Long term (current) use of insulin; Z79.02 Long term (current) use of antithrombotics/antiplatelets; Z79.899 Other long term (current) drug therapy

== ENCOUNTER → 2023-09-19 | Outpatient (CLI) | payer MEDICARE, OTHER ==
[~2023-09-19] MED LIST changes: +Regadenoson 0.4 MG/5 ML SYR IV ONE; +Technetium Tc 99M Tetrofosmi 0.23 MG KIT IJ SCH
== END | disposition home or self-care (01) ==
LOC: CARD 01:44
PROVIDERS: ATTEND Internal Medicine Cardiovascular Disease
DX: I25.10 Atherosclerotic heart disease of native coronary artery without angina pectoris (principal); I51.9 Heart disease, unspecified; Z95.5 Presence of coronary angioplasty implant and graft; Z98.890 Other specified postprocedural states; Z95.818 Presence of other cardiac implants and grafts

== ENCOUNTER 2023-09-20 18:07 | Emergency (ER) | payer MEDICARE, OTHER ==
[~2023-09-20] VITALS: Ht 154.9 cm; Wt 95.3 kg
[~2023-09-20 18:07] MED LIST changes: -Regadenoson 0.4 MG/5 ML SYR IV ONE; -Technetium Tc 99M Tetrofosmi 0.23 MG KIT IJ SCH
[2023-09-20 19:11] LABS: BASO % 0.4 % (0.0-1.0); EOS # 0.1 10*3/uL (0.0-0.4); EOS % 1.3 % (1.0-4.0); HEMATOCRIT 30.6 % (37.0-47.0); LYMPH % 19.4 % (27.0-41.0); MEAN CELL VOLUME 81.6 fl (81.0-99.0); MEAN CORPUSCULAR HGB 26.7 pg (27.0-31.0); MEAN CORPUSCULAR HGB CONC 32.7 g/dl (33.0-37.0); MEAN PLATELET VOLUME 8.9 fl (9.6-12.3); MONO # 0.8 10*3/uL (0.1-1.0); MONO % 7.3 % (3.0-9.0); NEUT # 7.4 10*3/uL (2.3-7.9); PLATELET COUNT AUTOMATED 336 10*3/uL (130-400); RED BLOOD COUNT 3.75 10*6/uL (4.10-5.10); RED CELL DISTRI WIDTH 15.1 % (0-14.5); WHITE BLOOD COUNT 10.5 10*3/uL (4.8-10.8)
[2023-09-20 19:21] LABS: ACT PARTIAL THROMBO TIME 32.9 SECONDS (20.0-32.1)
[2023-09-20 19:27] LABS: POTASSIUM 4.2 mmol/L (3.4-5.1)
[2023-09-20] MEDS ORDERED: SODIUM CHLORIDE 0.9% 1,000 ML IV ONE (20:00)
[2023-09-20 20:52] VITALS: BP 83/52
== END 2023-09-20 21:17 | disposition short-term general hospital (02) ==
LOC: ED 18:07
PROVIDERS: Physician Assistant Medical
DX: S31.109A Unspecified open wound of abdominal wall, unspecified quadrant without penetration into peritoneal cavity, initial encounter (principal); E11.9 Type 2 diabetes mellitus without complications; I25.10 Atherosclerotic heart disease of native coronary artery without angina pectoris; J44.9 Chronic obstructive pulmonary disease, unspecified; I10 Essential (primary) hypertension; I25.2 Old myocardial infarction; Z88.7 Allergy status to serum and vaccine; Z79.899 Other long term (current) drug therapy; Z79.4 Long term (current) use of insulin; Z90.710 Acquired absence of both cervix and uterus; Z96.653 Presence of artificial knee joint, bilateral; Z90.49 Acquired absence of other specified parts of digestive tract; Z86.718 Personal history of other venous thrombosis and embolism; Z86.711 Personal history of pulmonary embolism; X58.XXXA Exposure to other specified factors, initial encounter; Y93.89 Activity, other specified; Y92.89 Other specified places as the place of occurrence of the external cause; Y99.8 Other external cause status

== ENCOUNTER → 2024-02-27 | Outpatient (CLI) | payer MEDICARE, OTHER ==
[~2024-02-27] MED LIST changes: +FERROUS SULFAT325 MG PO; +METOPROLOL SUC100 M1 PO
== END | disposition home or self-care (01) ==
LOC: MAMMO 02:39
PROVIDERS: ATTEND Internal Medicine
DX: N60.02 Solitary cyst of left breast (principal); R92.8 Other abnormal and inconclusive findings on diagnostic imaging of breast

== ENCOUNTER → 2024-03-12 | Outpatient (CLI) | payer MEDICARE, OTHER ==
[2024-03-12 08:07] LABS: BASO # 0.1 10*3/uL (0.0-0.1); BASO % 0.7 % (0.0-1.0); EOS # 0.2 10*3/uL (0.0-0.4); EOS % 3.2 % (1.0-4.0); HEMATOCRIT 39.9 % (37.0-47.0); MEAN CELL VOLUME 89.9 fl (81.0-99.0); MEAN CORPUSCULAR HGB 26.8 pg (27.0-31.0); MEAN CORPUSCULAR HGB CONC 29.8 g/dl (33.0-37.0); MEAN PLATELET VOLUME 9.4 fl (9.6-12.3); MONO # 0.5 10*3/uL (0.1-1.0); MONO % 6.4 % (3.0-9.0); NEUT # 4.1 10*3/uL (2.3-7.9); NEUT % 55.8 % (47.0-73.0); PLATELET COUNT AUTOMATED 148 10*3/uL (130-400); RED BLOOD COUNT 4.44 10*6/uL (4.10-5.10); RED CELL DISTRI WIDTH 16.4 % (0-14.5); WHITE BLOOD COUNT 7.2 10*3/uL (4.8-10.8)
[2024-03-12 08:58] LABS: POTASSIUM 3.8 mmol/L (3.4-5.1)
== END | disposition home or self-care (01) ==
LOC: LAB 07:41
PROVIDERS: ATTEND Internal Medicine Interventional Cardiology
DX: Z51.81 Encounter for therapeutic drug level monitoring (principal); I25.10 Atherosclerotic heart disease of native coronary artery without angina pectoris; I25.5 Ischemic cardiomyopathy; I10 Essential (primary) hypertension; D64.9 Anemia, unspecified; E87.5 Hyperkalemia; Z98.890 Other specified postprocedural states; Z79.899 Other long term (current) drug therapy; Z95.818 Presence of other cardiac implants and grafts

== ENCOUNTER 2024-04-16 12:09 | Inpatient (IN) | payer MEDICARE, OTHER ==
[~2024-04-16] VITALS: Ht 154.9 cm; Wt 124.1 kg
[2024-04-16 12:40] VITALS: BP 120/77
[2024-04-16] MEDS ORDERED: FOAM BANDAGE 5X5 T ONE (13:56)
[2024-04-16] MEDS ORDERED: FUROSEMIDE40 MG PO (14:05)
[2024-04-16 14:41] LABS: BASO # 0.1 10*3/uL (0.0-0.1); BASO % 0.8 % (0.0-1.0); EOS # 0.2 10*3/uL (0.0-0.4); EOS % 2.3 % (1.0-4.0); HEMATOCRIT 38.2 % (37.0-47.0); MEAN CORPUSCULAR HGB 27.5 pg (27.0-31.0); MEAN CORPUSCULAR HGB CONC 30.9 g/dl (33.0-37.0); MEAN PLATELET VOLUME 9.9 fl (9.6-12.3); MONO # 0.5 10*3/uL (0.1-1.0); MONO % 7.2 % (3.0-9.0); NEUT # 3.7 10*3/uL (2.3-7.9); NEUT % 54.8 % (47.0-73.0); RED BLOOD COUNT 4.29 10*6/uL (4.10-5.10); WHITE BLOOD COUNT 6.7 10*3/uL (4.8-10.8)
[2024-04-16 14:43] LABS: PLATELET COUNT AUTOMATED 123 10*3/uL (130-400)
[2024-04-16 15:00] LABS: TOTAL PROTEIN 7.2 gm/dL (6.0-8.0)
[2024-04-16] MEDS ORDERED: DEXTROSE 10 % IN WATER 250 ML IV PRN (15:55)
[2024-04-16 16:00] VITALS: BP 136/55
[2024-04-16] MEDS ORDERED: INSULIN REGULAR, HUMAN 1 UNIT/0.01 ML SC SCH (16:30)
[2024-04-16] MEDS ORDERED: FUROSEMIDE 40 MG/4 ML VIAL IV SCH (18:00)
[2024-04-16 20:00] VITALS: BP 128/64
[2024-04-16] MEDS ORDERED: Insulin Glargine, Recombinan 1 UNIT/0.01 ML SC SCH (22:00)
[2024-04-16] MEDS ORDERED: APIXABAN 5 MG TAB PO SCH (22:00)
[2024-04-16] MEDS ORDERED: ATORVASTATIN CALCIUM 80 MG TAB PO SCH (22:00)
[2024-04-17] VITALS: BP 123/56
[2024-04-17 08:00] VITALS: BP 152/90
[2024-04-17] MEDS ORDERED: PERFLUTREN PROTEIN-A MICROSPHR 3 ML VIAL IV ONE (08:05)
[2024-04-17 09:10] LABS: POTASSIUM 3.9 mmol/L (3.4-5.1)
[2024-04-17] MEDS ORDERED: METOPROLOL SUCCINATE XR 100 MG TAB PO SCH (10:00)
[2024-04-17] MEDS ORDERED: ISOSORBIDE MONONITRATE 60 MG TAB PO SCH (10:00)
[2024-04-17] MEDS ORDERED: LINAGLIPTIN 5 MG TAB PO SCH (10:00)
[2024-04-17] MEDS ORDERED: FERROUS SULFATE 325 MG TAB PO SCH (10:00)
[2024-04-17 12:00] VITALS: BP 135/50
[2024-04-17 16:00] VITALS: BP 155/90
[2024-04-17 20:00] VITALS: BP 127/57
[2024-04-17] MEDS ORDERED: FOAM BANDAGE 5X5 T ONE (21:09)
[2024-04-18] VITALS: BP 135/66
[2024-04-18 05:25] LABS: BILIRUBIN Negative (Negative); BLOOD Trace-Lysed (Negative); CLARITY Cloudy (Clear); COLOR Yellow (Yellow); GLUCOSE Negative (Negative); KETONE Negative (Negative); LEUKO ESTERASE 1+ (Negative); NITRITE Negative (Negative); UROBILINOGEN 0.2 E.U./dl (0.0-1.0)
[2024-04-18 05:31] LABS: BACTERIA 4+; EPITHELIAL CELLS 21-30; WBC 21-30 wbc/hpf (0-5)
[2024-04-18 06:22] LABS: BASO # 0.1 10*3/uL (0.0-0.1); EOS # 0.2 10*3/uL (0.0-0.4); EOS % 3.4 % (1.0-4.0); HEMATOCRIT 35.1 % (37.0-47.0); MEAN CELL VOLUME 89.3 fl (81.0-99.0); MEAN CORPUSCULAR HGB 27.2 pg (27.0-31.0); MEAN CORPUSCULAR HGB CONC 30.5 g/dl (33.0-37.0); MONO # 0.4 10*3/uL (0.1-1.0); MONO % 8.2 % (3.0-9.0); NEUT # 2.4 10*3/uL (2.3-7.9); NEUT % 45.9 % (47.0-73.0); PLATELET COUNT AUTOMATED 115 10*3/uL (130-400); RED BLOOD COUNT 3.93 10*6/uL (4.10-5.10); RED CELL DISTRI WIDTH 17.1 % (0-14.5); WHITE BLOOD COUNT 5.2 10*3/uL (4.8-10.8)
[2024-04-18 06:27] LABS: POTASSIUM 3.5 mmol/L (3.4-5.1)
[2024-04-18 08:00] VITALS: BP 130/74
[2024-04-18 16:00] VITALS: BP 136/54; BP 142/59
[2024-04-18] MEDS ORDERED: METOLAZONE 5 MG TAB PO SCH (17:30)
[2024-04-18 20:00] VITALS: BP 127/60
[2024-04-19 00:08] VITALS: BP 117/55
[2024-04-19 05:32] LABS: POTASSIUM 3.6 mmol/L (3.4-5.1)
[2024-04-19 06:04] LABS: BASO # 0.1 10*3/uL (0.0-0.1); BASO % 0.9 % (0.0-1.0); MEAN CELL VOLUME 91.4 fl (81.0-99.0)
[2024-04-19 06:17] LABS: EOS # 0.2 10*3/uL (0.0-0.4); EOS % 3.3 % (1.0-4.0); HEMATOCRIT 38.2 % (37.0-47.0); MEAN CORPUSCULAR HGB 27.5 pg (27.0-31.0); MEAN CORPUSCULAR HGB CONC 30.1 g/dl (33.0-37.0); MEAN PLATELET VOLUME 11.1 fl (9.6-12.3); MONO # 0.4 10*3/uL (0.1-1.0); MONO % 7.9 % (3.0-9.0); NEUT # 2.6 10*3/uL (2.3-7.9); NEUT % 47.8 % (47.0-73.0); PLATELET COUNT AUTOMATED 123 10*3/uL (130-400); RED BLOOD COUNT 4.18 10*6/uL (4.10-5.10); RED CELL DISTRI WIDTH 16.9 % (0-14.5); WHITE BLOOD COUNT 5.4 10*3/uL (4.8-10.8)
[2024-04-19 08:00] VITALS: BP 148/59
[2024-04-19] MEDS ORDERED: SACUBITRIL/VALSARTAN 24 MG-26 MG TABLET PO SCH (10:00)
[2024-04-19] MEDS ORDERED: SPIRONOLACTONE 25 MG TAB PO SCH (10:00)
[2024-04-19 12:00] VITALS: BP 129/58
[2024-04-19] MEDS ORDERED: cefTRIAXone Sodium 1 GM in SYRINGE INFUSION 10 ML IV SCH (14:00)
[2024-04-19 16:00] VITALS: BP 144/64
[2024-04-19 20:00] VITALS: BP 144/51
[2024-04-20] VITALS: BP 115/59
[2024-04-20 08:00] VITALS: BP 120/55
[2024-04-20 12:00] VITALS: BP 117/63
[2024-04-20 16:00] VITALS: BP 127/51
[2024-04-20 20:00] VITALS: BP 141/64
[2024-04-21] VITALS: BP 124/57
[2024-04-21 06:09] LABS: BASO % 0.7 % (0.0-1.0); EOS # 0.2 10*3/uL (0.0-0.4); EOS % 3.5 % (1.0-4.0); HEMATOCRIT 38.6 % (37.0-47.0); MEAN CELL VOLUME 90.8 fl (81.0-99.0); MEAN CORPUSCULAR HGB 27.3 pg (27.0-31.0); MEAN CORPUSCULAR HGB CONC 30.1 g/dl (33.0-37.0); MEAN PLATELET VOLUME 10.4 fl (9.6-12.3); MONO # 0.5 10*3/uL (0.1-1.0); MONO % 9.1 % (3.0-9.0); NEUT # 2.6 10*3/uL (2.3-7.9); NEUT % 48.3 % (47.0-73.0); PLATELET COUNT AUTOMATED 109 10*3/uL (130-400); POTASSIUM 3.6 mmol/L (3.4-5.1); RED BLOOD COUNT 4.25 10*6/uL (4.10-5.10); WHITE BLOOD COUNT 5.5 10*3/uL (4.8-10.8)
[2024-04-21 08:00] VITALS: BP 134/59
[2024-04-21] MEDS ORDERED: SACUBITRIL/VALSARTAN 24 MG-26 MG TABLET PO SCH (10:00)
[2024-04-21 12:00] VITALS: BP 136/60
[2024-04-21] MEDS ORDERED: FOAM BANDAGE 5X5 T ONE (14:15)
[2024-04-21 16:00] VITALS: BP 128/50
[2024-04-21 20:00] VITALS: BP 122/61
[2024-04-22] VITALS: BP 119/52
[2024-04-22 08:00] VITALS: BP 111/59
[2024-04-22 12:00] VITALS: BP 101/44; BP 128/56
[2024-04-22 16:00] VITALS: BP 119/56
[2024-04-22 20:00] VITALS: BP 136/65
[2024-04-23] VITALS: BP 126/52
[2024-04-23 04:19] LABS: BASO % 0.8 % (0.0-1.0); EOS # 0.2 10*3/uL (0.0-0.4); EOS % 3.8 % (1.0-4.0); HEMATOCRIT 36.9 % (37.0-47.0); MEAN CORPUSCULAR HGB 27.6 pg (27.0-31.0); MEAN CORPUSCULAR HGB CONC 30.6 g/dl (33.0-37.0); MEAN PLATELET VOLUME 10.6 fl (9.6-12.3); MONO # 0.5 10*3/uL (0.1-1.0); MONO % 10.2 % (3.0-9.0); NEUT # 2.1 10*3/uL (2.3-7.9); NEUT % 40.7 % (47.0-73.0); PLATELET COUNT AUTOMATED 104 10*3/uL (130-400); RED CELL DISTRI WIDTH 17.2 % (0-14.5); WHITE BLOOD COUNT 5.2 10*3/uL (4.8-10.8)
[2024-04-23 04:48] LABS: POTASSIUM 3.7 mmol/L (3.4-5.1)
[2024-04-23 07:59] VITALS: BP 117/52
[2024-04-23 11:50] VITALS: BP 144/59
[2024-04-23 16:00] VITALS: BP 127/45
[2024-04-23 20:00] VITALS: BP 116/48
[2024-04-24] VITALS: BP 109/52
[2024-04-24 08:00] VITALS: BP 128/50
[2024-04-24] MEDS ORDERED: ENTRESTO 24 MG1 EACH PO (09:05)
[2024-04-24] MEDS ORDERED: CEFUROXIME AXE250 MG PO (09:05)
[2024-04-24] MEDS ORDERED: ALDACTONE25 MG PO (09:05)
[2024-04-24 11:59] VITALS: BP 140/55
[2024-04-24] MEDS ORDERED: FOAM BANDAGE 5X5 T ONE (12:53)
== END 2024-04-24 13:15 | DRG 291 ==
LOC: 4E 12:09 → 5E 04-20 17:33
PROVIDERS: Internal Medicine Nephrology; ADMIT Internal Medicine; ATTEND Internal Medicine
PROC: 5A09357 Assistance with Respiratory Ventilation, Less than 24 Consecutive Hours, Continuous Positive Airway Pressure (ICD-10-PCS; principal; 2024-04-18)
PROC: 5A09357 Assistance with Respiratory Ventilation, Less than 24 Consecutive Hours, Continuous Positive Airway Pressure (ICD-10-PCS; 2024-04-19)
PROC: 5A09357 Assistance with Respiratory Ventilation, Less than 24 Consecutive Hours, Continuous Positive Airway Pressure (ICD-10-PCS; 2024-04-21)
PROC: 5A09357 Assistance with Respiratory Ventilation, Less than 24 Consecutive Hours, Continuous Positive Airway Pressure (ICD-10-PCS; 2024-04-23)
DX: I13.0 Hypertensive heart and chronic kidney disease with heart failure and stage 1 through stage 4 chronic kidney disease, or unspecified chronic kidney disease (principal); I50.41 Acute combined systolic (congestive) and diastolic (congestive) heart failure; E87.3 Alkalosis; N17.9 Acute kidney failure, unspecified; N39.0 Urinary tract infection, site not specified; I48.21 Permanent atrial fibrillation; Z68.43 Body mass index [BMI] 50.0-59.9, adult; N18.32 Chronic kidney disease, stage 3b; E66.01 Morbid (severe) obesity due to excess calories; B96.1 Klebsiella pneumoniae [K. pneumoniae] as the cause of diseases classified elsewhere; R62.7 Adult failure to thrive; E11.22 Type 2 diabetes mellitus with diabetic chronic kidney disease; G47.33 Obstructive sleep apnea (adult) (pediatric); Z96.653 Presence of artificial knee joint, bilateral; E83.52 Hypercalcemia; I25.10 Atherosclerotic heart disease of native coronary artery without angina pectoris; Z86.711 Personal history of pulmonary embolism; Z86.718 Personal history of other venous thrombosis and embolism; Z90.49 Acquired absence of other specified parts of digestive tract; Z84.1 Family history of disorders of kidney and ureter; Z88.7 Allergy status to serum and vaccine; Z88.8 Allergy status to other drugs, medicaments and biological substances

== ENCOUNTER → 2024-09-23 | Outpatient (CLI) | payer MEDICARE, OTHER ==
[~2024-09-23] MED LIST changes: +ALDACTONE25 MG PO; +ALDACTONE50 M1 PO; +CEFUROXIME AXE250 MG PO; +ENTRESTO 24 MG1 EACH PO; +LANTUS100 UNIT/1 SC; +LASIX20 MG PO; +MAGNESIUM OXID400 MG PO; +PERFLUTREN PROTEIN-A MICROSPHR 3 ML VIAL IV ONE; +PREDNISONE5 MG PO
[2024-09-23 08:39] LABS: BASO # 0.0 10*3/uL (0.0-0.1); BASO % 0.7 % (0.0-1.0); EOS # 0.2 10*3/uL (0.0-0.4); EOS % 3.9 % (1.0-4.0); MEAN CELL VOLUME 95.6 fl (81.0-99.0); MEAN CORPUSCULAR HGB 29.9 pg (27.0-31.0); MEAN PLATELET VOLUME 9.4 fl (9.6-12.3); MONO # 0.4 10*3/uL (0.1-1.0); MONO % 6.9 % (3.0-9.0); NEUT # 3.0 10*3/uL (2.3-7.9); NEUT % 52.3 % (47.0-73.0); NUCLEATED RED BLOOD CELL 0.0 % (0.0-0.0); NUCLEATED RED BLOOD CELL 0.0 10*3/uL (0.0-0.0); PLATELET COUNT AUTOMATED 120 10*3/uL (130-400); RED CELL DISTRI WIDTH 13.5 % (0-14.5)
[2024-09-23 09:17] LABS: BUN 60.0 mg/dl (9-23); FREE T4 0.95 ng/dl (0.89-1.76); LDL CHOLESTEROL 61.0 mg/dL (9-159); SGPT/ALT 14.0 U/L (5-49)
[2024-09-23 09:54] LABS: VITAMIN D, 25-HYDROXY 38.2 ng/mL (30-100)
== END | disposition home or self-care (01) ==
LOC: LAB 08:20 → CARD 09:30
PROVIDERS: ATTEND Internal Medicine
DX: I07.1 Rheumatic tricuspid insufficiency (principal); I12.9 Hypertensive chronic kidney disease with stage 1 through stage 4 chronic kidney disease, or unspecified chronic kidney disease; E11.22 Type 2 diabetes mellitus with diabetic chronic kidney disease; N18.32 Chronic kidney disease, stage 3b; D63.1 Anemia in chronic kidney disease; E11.65 Type 2 diabetes mellitus with hyperglycemia; I95.9 Hypotension, unspecified; E66.813 Obesity, class 3; R53.83 Other fatigue; E53.9 Vitamin B deficiency, unspecified; E55.9 Vitamin D deficiency, unspecified

== ENCOUNTER → 2024-12-17 | Outpatient (CLI) | payer MEDICARE, OTHER ==
[~2024-12-17] MED LIST changes: -PERFLUTREN PROTEIN-A MICROSPHR 3 ML VIAL IV ONE
[2024-12-17 11:49] LABS: BUN 79.0 mg/dl (9-23)
== END | disposition home or self-care (01) ==
LOC: LAB 10:36
PROVIDERS: ATTEND Internal Medicine
DX: I10 Essential (primary) hypertension (principal); Z13.0 Encounter for screening for diseases of the blood and blood-forming organs and certain disorders involving the immune mechanism; Z13.1 Encounter for screening for diabetes mellitus; Z13.21 Encounter for screening for nutritional disorder; Z13.220 Encounter for screening for lipoid disorders; Z13.228 Encounter for screening for other metabolic disorders; Z13.29 Encounter for screening for other suspected endocrine disorder; Z13.6 Encounter for screening for cardiovascular disorders; Z13.89 Encounter for screening for other disorder